=== PATIENT | male | born 1945 | race Caucasian/White ===

== ENCOUNTER 2022-10-08 09:22 | Inpatient (IN) ==
--- NOTE | 2022-10-08 09:46 | Emergency Department Note ---
Impression & Plan Peripheral arterial disease, Claudication ED Provider Note NAME: MARIA ALEJANDRA DONOVAN AGE: 76 SEX: M : 1945 ARRIVES VIA: Walk-In INFORMANT: Patient ED PROVIDER(S): [facility] Springer DO CHIEF COMPLAINT: B/L LE pain HPI: Patient is a 76-year-old male with past medical history of peripheral artery disease, intermittent claudication, and smoking who presents to the ER for bilateral leg pain. He notes this has been going on for about 6 months. Initially started in the left leg and now is in the right leg. Is worse in the right leg. Followed up with Dr. De and was consequently referred to Dr. Cha for evaluation. He came in today as the pain has been getting worse. It worsens with exertion. Improves with rest and then eventually resolves after sitting for several minutes. Denies any headache or change in vision. No chest pain or shortness of breath. No nausea, vomiting, or diarrhea. No dysuria, urgency, or frequency. He is still smoking. PAST MEDICAL HISTORY:See Below PAST SURGICAL HISTORY:See Below FAMILY HISTORY:See Below SOCIAL HISTORY:See Below HOME MEDICATIONS:See Below ALLERGIES:See Below VITALS:See Below PHYSICAL EXAMINATION: GENERAL: Sitting up in bed, alert, well appearing, well nourished, no distress, non-toxic EYE EXAM: normal conjunctiva. OROPHARYNX: no exudate, no erythema, lips, buccal mucosa, and tongue normal and mucous membranes are moist NECK: supple, no nuchal rigidity, no adenopathy, non-tender LUNGS: Clear to auscultation. Normal chest wall mechanics HEART: no murmurs, S1 normal and S2 normal ABDOMEN: abdomen soft, non-tender, normo-active bowel sounds, no masses, no rebound or guarding. UPPER EXTREMITIES: upper extremities are grossly normal. LOWER EXTREMITIES: Flexion-extension bilateral hips knees ankles and EHL intact. Unable to appreciate DP or PT bilaterally. Skin is warm with a delayed cap refill. NEURO EXAM: Normal sensorium, cranial nerves II-XII grossly intact, normal speech, no gross weakness of arms, no gross weakness of legs. MEDICAL DECISION MAKING: Patient is a 76-year-old male who presents ER referred in by Dr. Cha. IV was established blood work was obtained. External records reviewed. Labs show no significant leukocytosis or anemia. BMP along LFTs bilirubin was unremarkable. COVID was negative. CT angio shows multiple arterial occlusions which appear to be chronic with revascularization. Did discuss with Dr. Cha and he recommended admission and they will admit the patient. Patient declined pain medications. He was updated at bedside. Vascular recommended holding on heparin. Will be admitted to Dr. Cha service. Family and patient were updated bedside. Triage Nursing notes reviewed. Limited review of prior medical records performed Vital Signs: reviewed and remarkable for no significant abnormalities Differential diagnosis: DVT, musculoskeletal, infection, joint effusion, trauma, lymphedema, idiopathic, CHF, arterial occlusion, venous occlusion, ischemic limb, necrotizing fasciitis, as well as other pathologies. ER treatment provided: See below Diagnostics interpreted by me include EKG and cardiac monitoring as listed below: -Cardiac Monitoring: An order was placed for continuous cardiac monitoring. The monitor shows a rate of 85 with sinus rhythm. -ECG: none -Laboratory studies:Interpreted by me as stated above in MDM and shown below. Imaging studies: Xrays: As interpreted by me:none CTs show: CT angio as described above Consultation(s): As described in MDM discussed with vascular surgery Dr. Cha as described above Procedures:none Critical Care: None Past Med/Surg History Social History Smoking Status: Current every day smoker Preferred Language: Citizen Of [place] Feels Safe at Home: Yes Allergies Allergies Allergy/AdvReac Type Severity Reaction Status Date / Time gabapentin AdvReac Unknown Verified 09/05/22 14:59 Home Meds Home Medications Medication Instructions Recorded Confirmed acetaminophen 325 mg tablet 325 mg PO QID PRN Pain 09/03/22 10/08/22 (Tylenol) clopidogrel 75 mg tablet (Plavix) 75 mg PO DAILY 09/03/22 10/08/22 multivitamin 1 tab PO DAILY 09/03/22 10/08/22 tamsulosin 0.4 mg capsule (Flomax) 0.4 mg PO DAILY 09/03/22 10/08/22 atorvastatin 40 mg tablet 40 mg PO DAILY 10/08/22 10/08/22 finasteride 5 mg tablet 5 mg PO DAILY 10/08/22 10/08/22 Results & Data (ED) Vital Signs Vital Signs - 24 hr 10/08/22 09:26 10/08/22 10:18 10/08/22 10:08 Temperature 37.0 C Temperature Source Temporal Artery Scan Pulse Rate 83 72 67 Pulse Rate from SpO2 Sensor Pulse Rhythm Regular Respiratory Rate 18 21 Respiratory Effort / Characteristics Non-Labored Respiratory Depth Normal Respiratory Pattern Regular Blood Pressure 194/95 H Blood Pressure Mean 128 Blood Pressure Position Lying Pulse Oximetry 98 Oxygen Delivery Method Room Air Sepsis Recent Fever Within 48 Hours No Sepsis New/Unexplained Change in Mental Status No Sepsis Action Taken by Nursing No Action Required 10/08/22 10:11 10/08/22 10:30 10/08/22 10:31 Temperature Temperature Source Pulse Rate 85 72 Pulse Rate from SpO2 Sensor 89 73 Pulse Rhythm Respiratory Rate 23 20 Respiratory Effort / Characteristics Respiratory Depth Respiratory Pattern Blood Pressure 182/89 H Blood Pressure Mean 143 Blood Pressure Position Pulse Oximetry 95 95 Oxygen Delivery Method Sepsis Recent Fever Within 48 Hours Sepsis New/Unexplained Change in Mental Status Sepsis Action Taken by Nursing 10/08/22 10:31 10/08/22 11:00 10/08/22 11:01 Temperature Temperature Source Pulse Rate 70 72 Pulse Rate from SpO2 Sensor 72 74 Pulse Rhythm Respiratory Rate 35 H 16 Respiratory Effort / Characteristics Respiratory Depth Respiratory Pattern Blood Pressure 187/99 H Blood Pressure Mean 140 Blood Pressure Position Pulse Oximetry 97 96 Oxygen Delivery Method Sepsis Recent Fever Within 48 Hours Sepsis New/Unexplained Change in Mental Status Sepsis Action Taken by Nursing 10/08/22 11:01 10/08/22 11:32 Temperature Temperature Source Pulse Rate 71 80 Pulse Rate from SpO2 Sensor 70 Pulse Rhythm Respiratory Rate 19 20 Respiratory Effort / Characteristics Respiratory Depth Respiratory Pattern Blood Pressure Blood Pressure Mean Blood Pressure Position Pulse Oximetry 95 Oxygen Delivery Method Sepsis Recent Fever Within 48 Hours Sepsis New/Unexplained Change in Mental Status Sepsis Action Taken by Nursing Laboratory Data 10/08/22 10:02 10/08/22 10:02 Lab Results 10/08/22 10/08/22 10/08/22 Range/Units 10:02 10:02 10:02 WBC 10.05 (4.8-10.8) K/ul RBC 4.37 L (4.70-6.10) M/uL Hgb 14.5 (14.0-18.0) g/dl Hct 43.4 (42.0-52.0) % MCV 99.3 (80.0-100.0) fL MCH 33.2 (25.0-34.0) pg MCHC 33.4 (32.0-36.0) g/dL RDW Std Deviation 47.1 H (36.4-46.3) fL RDW Coeff of Wallace 13.0 (11.5-14.5) % Plt Count 293 (130-400) K/uL MPV 10.5 (9.4-12.4) fL Immature Gran % (Auto) 0.5 % Neut % (Auto) 71.5 % Lymph % (Auto) 17.3 % Rutherford % (Auto) 8.7 % Eos % (Auto) 1.5 % Baso % (Auto) 0.5 % Neut # (Auto) 7.19 H (1.40-6.50) K/uL Lymph # (Auto) 1.74 (1.2-3.4) K/uL Rutherford # (Auto) 0.87 H (0.11-0.59) K/uL Eos # (Auto) 0.15 (0-0.50) K/uL Baso # (Auto) 0.05 (0-0.2) K/uL Immature Gran # (Auto) 0.05 (0.01-0.20) K/uL Sodium 140 (136-145) mmol/L Potassium 4.2 (3.5-5.1) mmol/L Chloride 107 (98-107) mmol/L Carbon Dioxide 29 (21-32) mmol/L Anion Gap 4 (3-11) BUN 12 (6-23) mg/dl Creatinine 0.85 (0.6-1.4) mg/dl Est Cr Clr Drug Dosing 67.6 ml/min Est GFR ( Amer) 99.5 ml/min Est GFR (Non-Af Amer) 85.8 ml/min BUN/Creatinine Ratio 14.1 (10-20) Glucose 97 (70-99(Fasting)) mg/dl Calcium 9.5 (8.6-10.3) mg/dl Total Bilirubin 0.4 (0.2-1.0) mg/dl AST 17 (13-39) U/L ALT 12 (7-52) U/L Alkaline Phosphatase 38 (34-104) U/L Total Protein 7.3 (6.0-8.3) gm/dl Albumin 4.5 (3.4-5.0) gm/dl Globulin 2.8 (2.5-4.0) gm/dl Albumin/Globulin Ratio 1.6 (0.9-2) SARS-CoV-2, RNA, NAAT NEGATIVE (NEGATIVE) Administered Medications Enoxaparin Sodium (Enoxaparin Inj 30 Mg/0.3 Ml Syr) 30 mg SQ Q12H DEBO Stop: 11/07/22 11:29 Last Admin: 10/08/22 12:26 Dose: 30 mg Documented By: HS Discontinued Medications Ioversol (Optiray 320 500ml) 120 ml IV ONCE ONE Stop: 10/08/22 12:25 Last Admin: 10/08/22 12:14 Dose: 120 ml Documented By: [facility] Imaging Data Radiologist's Impression: Aorta w/Runoff CTA 10/08/22 09:54 CT ANGIOGRAPHY OF THE ABDOMEN AND PELVIS WITH BILATERAL LOWER EXTREMITY RUNOFF CLINICAL HISTORY: Bilateral leg pain with known occlusion. COMPARISON STUDY: Bilateral lower extremity arterial Doppler ultrasound August 15, 2022. TECHNIQUE: Helical axial images of the abdomen and pelvis with lower extremity runoff were obtained during arterial phase following intravenous injection 120 cc Optiray 320 IV. Sagittal and coronal reconstructions were viewed as well as maximal intensity projections on an independent 3-D workstation. Automated exposure control was utilized for the study. A dose lowering technique was utilized adhering to the principles of ALARA. FINDINGS: There is extensive aortoiliac atherosclerotic plaque as well as extensive plaque within the vessels of the lower extremities. Aneurysmal dilatation of the infrarenal abdominal aorta, measuring 3.5 x 3.4 cm is noted. Age-indeterminate aortoiliac occlusion is noted. There is reconstitution at the level of the distal right external iliac artery. Moderate stenoses within the right external iliac and common femoral arteries are noted. There are also moderate multifocal stenoses within the right superficial femoral artery. The right calf vessels are patent although difficult to assess given their small size. The right anterior tibial, posterior tibial, peroneal and dorsalis pedis vessels are patent. There is reconstitution at the level of the left common femoral artery. Reconstitution within the bilateral lower extremities is through enlarged inferior epigastric arteries as well as additional collaterals which are fed partially through prominent intercostal arteries. There is mild stenosis of the left common femoral artery. Severe multifocal stenoses within the mid to distal left superficial femoral artery are noted. The left trifurcation is patent. No flow is identified within the distal most aspects of the left calf vessels. This may be technical as the scanner out ran the bolus. Arterial phase images of the liver, spleen, adrenal glands and kidneys are unremarkable. The renal arteries are patent. The superior mesenteric artery and celiac axis are patent. There is no evidence for a bowel obstruction. The appendix is normal. There is no lymphadenopathy. There are no acute fractures. IMPRESSION: 1. Age indeterminate aortoiliac occlusion with distal reconstitution through enlarged inferior epigastric arteries and lateral abdominal wall collaterals, as detailed above. 2. Extensive plaque within the bilateral lower extremities, left greater than right. Severe multifocal stenoses within the mid to distal left superficial femoral artery. Left trifurcation patent however distal left calf vessels suboptimally assessed due to scanner likely outrunning the bolus. 3. Moderate stenoses within the right external iliac, common femoral and superficial femoral arteries. Patent right calf vessels. Three-vessel runoff on the right. 4. 3.5 cm infrarenal abdominal aortic aneurysm. 5. No bowel obstruction. No bowel wall thickening. ACT 112: Negative or not required by law. Electronically signed by: Amadou Galvin M.D. 10/08/2022 12:47 PM Discharge Plan Visit Data Chief Complaint: Swelling/Edema to Extremity Stated Complaint: SWELLING AT FEET, REDNESS PAIN ED Provider: Mt Springer Discharge Problem: Peripheral arterial disease, Claudication Forms Stand Alone Forms: My [facility] Digiting Prescriptions Prescriptions: No Action tamsulosin [Flomax] 0.4 mg capsule 0.4 mg PO DAILY clopidogrel [Plavix] 75 mg tablet 75 mg PO DAILY multivitamin Tablet 1 tab PO DAILY acetaminophen [Tylenol] 325 mg tablet 325 mg PO QID PRN (Reason: Pain) atorvastatin 40 mg tablet 40 mg PO DAILY finasteride 5 mg tablet 5 mg PO DAILY Referrals Referrals: Dusty Palumbo D.O. [Primary Care Provider] -
[2022-10-08 10:40] LABS: Basophils # (auto) 0.05 K/uL (0-0.2); Basophils % (auto) 0.5 %; Eosinophils # (auto) 0.15 K/uL (0-0.50); Eosinophils % (auto) 1.5 %; Hematocrit (blood only) 43.4 % (42.0-52.0); Hemoglobin 14.5 g/dl (14.0-18.0); Immature Granulocytes # (auto) 0.05 K/uL (0.01-0.20); Immature Granulocytes % (auto) 0.5 %; Lymphocytes # (auto) 1.74 K/uL (1.2-3.4); Lymphocytes % (auto) 17.3 %; Mean Corpuscular Hemoglobin 33.2 pg (25.0-34.0); Mean Corpuscular Hgb Conc 33.4 g/dL (32.0-36.0); Mean Corpuscular Volume 99.3 fL (80.0-100.0); Mean Platelet Volume 10.5 fL (9.4-12.4); Monocytes # (auto) 0.87 K/uL (0.11-0.59); Monocytes % (auto) 8.7 %; Neutrophils # (auto) 7.19 K/uL (1.40-6.50); Neutrophils % (auto) 71.5 %; Platelet Count 293 K/uL (130-400); RDW Standard Deviation 47.1 fL (36.4-46.3); Red Blood Count 4.37 M/uL (4.70-6.10); White Blood Count 10.05 K/ul (4.8-10.8)
[2022-10-08 10:55] LABS: Albumin Level 4.5 gm/dl (3.4-5.0); Bilirubin,Total 0.4 mg/dl (0.2-1.0); Calcium 9.5 mg/dl (8.6-10.3); Potassium 4.2 mmol/L (3.5-5.1)
[2022-10-08 11:01] LABS: Albumin Globulin Ratio 1.6 (0.9-2); BUN Creatinine Ratio 14.1 (10-20); Creatinine Clr Calc Pharmacy 67.6 ml/min; Est GFR (African American) 99.5 ml/min; Est GFR (Non-African American) 85.8 ml/min; Globulin 2.8 gm/dl (2.5-4.0); Total Protein 7.3 gm/dl (6.0-8.3)
[2022-10-08] MEDS ORDERED: oxyCODONE/ACETAMINOPHEN 5mg/325mg TAB PO PRN (11:37)
[2022-10-08] MEDS ORDERED: OPTIRAY 320 500ml IV ONE (12:24)
[2022-10-08] MEDS: ENOXAPARIN INJ 30 MG/0.3 ML SYR SQ SCH ×2 (12:26→22:28)
--- NOTE | 2022-10-08 12:49 | CT Scan Report ---
CT ANGIOGRAPHY OF THE ABDOMEN AND PELVIS WITH BILATERAL LOWER EXTREMITY RUNOFF CLINICAL HISTORY: Bilateral leg pain with known occlusion. COMPARISON STUDY: Bilateral lower extremity arterial Doppler ultrasound August 15, 2022. TECHNIQUE: Helical axial images of the abdomen and pelvis with lower extremity runoff were obtained d uring arterial phase following intravenous injection 120 cc Optiray 320 IV. Sagittal and coronal luis nstructions were viewed as well as maximal intensity projections on an independent 3-D workstation. A utomated exposure control was utilized for the study. A dose lowering technique was utilized adherin g to the principles of ALARA. FINDINGS: There is extensive aortoiliac atherosclerotic plaque as well as extensive plaque within the vessels of the lower extremities. Aneurysmal dilatation of the infrarenal abdominal aorta, measuring 3.5 x 3.4 cm is noted. Age-indeterminate aortoiliac occlusion is noted. There is reconstitution at t he level of the distal right external iliac artery. Moderate stenoses within the right external iliac and common femoral arteries are noted. There are also moderate multifocal stenoses within the right superficial femoral artery. The right calf vessels are patent although difficult to assess given thei r small size. The right anterior tibial, posterior tibial, peroneal and dorsalis pedis vessels are pa tent. There is reconstitution at the level of the left common femoral artery. Reconstitution within the jazmine ateral lower extremities is through enlarged inferior epigastric arteries as well as additional colla terals which are fed partially through prominent intercostal arteries. There is mild stenosis of the left common femoral artery. Severe multifocal stenoses within the mid to distal left superficial femo ral artery are noted. The left trifurcation is patent. No flow is identified within the distal most a spects of the left calf vessels. This may be technical as the scanner out ran the bolus. Arterial phase images of the liver, spleen, adrenal glands and kidneys are unremarkable. The renal ar teries are patent. The superior mesenteric artery and celiac axis are patent. There is no evidence fo r a bowel obstruction. The appendix is normal. There is no lymphadenopathy. There are no acute fractu res. IMPRESSION: 1. Age indeterminate aortoiliac occlusion with distal reconstitution through enlarged inferior epigas tric arteries and lateral abdominal wall collaterals, as detailed above. 2. Extensive plaque within the bilateral lower extremities, left greater than right. Severe multifoca l stenoses within the mid to distal left superficial femoral artery. Left trifurcation patent however distal left calf vessels suboptimally assessed due to scanner likely outrunning the bolus. 3. Moderate stenoses within the right external iliac, common femoral and superficial femoral arteries . Patent right calf vessels. Three-vessel runoff on the right. 4. 3.5 cm infrarenal abdominal aortic aneurysm. 5. No bowel obstruction. No bowel wall thickening. ACT 112: Negative or not required by law. Electronically signed by: Amadou Galvin M.D. 10/08/2022 12:47 PM
[2022-10-08] MEDS ORDERED: NICOTINE POLACRILEX 2 MG GUM MT PRN (13:52)
[2022-10-08] MEDS: NICOTINE 21 MG/24 HR TDSY TD SCH (13:57)
[2022-10-08] MEDS: ACETAMINOPHEN 325 MG TAB PO PRN ×2 (16:15→22:25)
[2022-10-08 19:02] LABS: Appearance Urine Clear (Clear); Bilirubin Urine Negative (Negative); Blood Urine Negative (Negative); Color Urine Yellow; Glucose Urine UA Negative (Negative); Ketones Urine Negative (Negative); Leukocyte Esterase Urine Negative (Negative); Nitrite Urine Negative (Negative); Protein Urine Negative (Negative); Specific Gravity Urine 1.031 (1.000-1.030); Urobilinogen Urine Negative (Negative); pH Urine 6.5 (4.5-7.5)
[2022-10-09] MEDS: ATORVASTATIN 40 MG TAB PO SCH (08:08)
[2022-10-09] MEDS: MULTIVITAMIN TAB PO SCH (08:08)
[2022-10-09] MEDS: TAMSULOSIN HCL 0.4 MG CAP PO SCH (08:08)
[2022-10-09] MEDS: FINASTERIDE 5 MG TAB PO SCH (08:08)
[2022-10-09] MEDS: NICOTINE 21 MG/24 HR TDSY TD SCH (09:07)
[2022-10-09 09:28] LABS: Basophils # (auto) 0.06 K/uL (0-0.2); Basophils % (auto) 0.6 %; Eosinophils # (auto) 0.25 K/uL (0-0.50); Eosinophils % (auto) 2.5 %; Hematocrit (blood only) 43.9 % (42.0-52.0); Immature Granulocytes # (auto) 0.05 K/uL (0.01-0.20); Immature Granulocytes % (auto) 0.5 %; Lymphocytes # (auto) 2.06 K/uL (1.2-3.4); Lymphocytes % (auto) 20.6 %; Mean Corpuscular Hemoglobin 33.1 pg (25.0-34.0); Mean Corpuscular Hgb Conc 34.2 g/dL (32.0-36.0); Mean Corpuscular Volume 96.9 fL (80.0-100.0); Mean Platelet Volume 10.6 fL (9.4-12.4); Monocytes # (auto) 0.77 K/uL (0.11-0.59); Monocytes % (auto) 7.7 %; Neutrophils # (auto) 6.83 K/uL (1.40-6.50); Neutrophils % (auto) 68.1 %; Platelet Count 311 K/uL (130-400); RDW Standard Deviation 46.6 fL (36.4-46.3); Red Blood Count 4.53 M/uL (4.70-6.10); White Blood Count 10.02 K/ul (4.8-10.8)
[2022-10-09 09:40] LABS: Partial Thromboplastin Time 27.3 Seconds (21.0-31.0); Prothrombin Time 10.9 Seconds (9.0-12.0)
[2022-10-09 09:50] LABS: Calcium 10.1 mg/dl (8.6-10.3); Potassium 4.4 mmol/L (3.5-5.1)
[2022-10-09 09:55] LABS: Creatinine Clr Calc Pharmacy 59.8 ml/min; Est GFR (African American) 94.6 ml/min; Est GFR (Non-African American) 81.6 ml/min
--- NOTE | 2022-10-09 11:32 | Surgery Progress Note ---
Date of Service October 09, 2022 Assessment & Plan (1) Chronic distal aortic occlusion: Plan: This point we went over the risk option benefits of aortobifemoral bypass. This was discussed with the patient and his daughter granddaughter and . All understood the risks options and benefits and elected to go ahead with this procedure. This to be scheduled for Friday. We will obtain a carotid Doppler due to history of carotid disease prior to surgery. Admission and Anticipated Discharge Date Admission Date: October 08, 2022 Subjective Patient continues to have discomfort in both lower extremities at rest. He denies any numbness in his feet at this time. Physical Exam Constitutional: WD/WN, vitals as above Respiratory: normal respiratory effort; no respiratory distress Cardiovascular: Rate/Rhythm: regular rate and regular rhythm Vessels: + posterior tibial pulses abnormal and + dorsalis pedis pulses abnormal Extremities: + abnormal capillary refill (Decreased in both feet.) Neurologic: normal sensation to monofilament and moves all extremities Results & Data Vital Signs (Past 12 Hours) Vital Signs Temp Pulse Resp BP Pulse Ox O2 Del Method 10/09/22 09:16 Room Air 10/09/22 07:57 36.8 C 68 16 163/79 H 95 Room Air
[2022-10-09] MEDS: ENOXAPARIN INJ 30 MG/0.3 ML SYR SQ SCH ×2 (11:33→22:08)
--- NOTE | 2022-10-09 11:56 | Ultrasound Report ---
BILATERAL CAROTID DOPPLER STUDY HISTORY: carotid stenosis COMPARISON: None. TECHNIQUE: Real-time, grayscale, and color Doppler sonography of the carotid arteries was performed. Imaging reviewed in the transverse and longitudinal planes. All measurements were calculated based on NASCET criteria. FINDINGS: Antegrade flow is seen in the bilateral vertebral arteries. Mild calcified plaque within the right carotid bifurcation. There is a left ICA stent which appears p atent. The peak systolic velocity within the right ICA is 63 cm/s. The right systolic ratio is 1.4. The peak systolic velocity within the left ICA is 92 cm/s. The left systolic ratio is 1.9. Elevated peak soft velocity within the left external carotid artery of 248 cm/s consistent with moder ate stenosis. IMPRESSION: 1. The left ICA stent appears patent. 2. No hemodynamically significant stenosis seen within the common or internal carotid arteries. 3. Moderate stenosis within the left external carotid artery. ACT 112: Negative or not required by law. Electronically signed by: Sharad Garland M.D. 10/09/2022 11:54 AM
[2022-10-09] MEDS: ACETAMINOPHEN 325 MG TAB PO PRN (13:44)
--- NOTE | 2022-10-09 14:07 | XCELERA ---
[id number]
[2022-10-10] MEDS: ACETAMINOPHEN 325 MG TAB PO PRN ×2 (06:07→22:33)
[2022-10-10] MEDS: ATORVASTATIN 40 MG TAB PO SCH (08:13)
[2022-10-10] MEDS: TAMSULOSIN HCL 0.4 MG CAP PO SCH (08:13)
[2022-10-10] MEDS: MULTIVITAMIN TAB PO SCH (08:13)
[2022-10-10] MEDS: FINASTERIDE 5 MG TAB PO SCH (08:13)
[2022-10-10] MEDS: NICOTINE 21 MG/24 HR TDSY TD SCH (08:14)
[2022-10-10] MEDS: ENOXAPARIN INJ 30 MG/0.3 ML SYR SQ SCH (11:16)
[2022-10-10] MEDS ORDERED: SODIUM CHLORIDE 0.9% 250 ML IV PRN (13:42)
--- NOTE | 2022-10-10 14:01 | Surgery Progress Note ---
Date of Service October 10, 2022 Assessment & Plan (1) Chronic distal aortic occlusion: Plan: Patient is scheduled for an aortobifemoral bypass tomorrow. I have discussed the risks options and benefits of the procedure with the patient. The patient understands the risks options and benefits and agrees to the procedure. Admission and Anticipated Discharge Date Admission Date: October 08, 2022 Subjective The patient has no new complaints. He still has discomfort in both feet. He is to have an aortobifemoral bypass tomorrow. Physical Exam Constitutional: WD/WN, vitals as above Respiratory: normal respiratory effort; no respiratory distress Cardiovascular: RRR, no murmur, no edema Vessels: + femoral pulses abnormal, + posterior tibial pulses abnormal and + dorsalis pedis pulses abnormal Extremities: normal capillary refill (Decreased capillary refill both feet) Gastrointestinal (Abdomen): Inspection/Auscultation: abdomen normal to inspection Musculoskeletal: Extremities: strength 5/5 throughout Neurologic: CN's II-XI intact bilaterally, normal sensation to monofilament and moves all extremities Psychiatric: Orientation: alert and oriented x 3 Results & Data Vital Signs (Past 12 Hours) Vital Signs Temp Pulse Resp BP Pulse Ox O2 Del Method 10/10/22 08:21 Room Air 10/10/22 07:31 36.3 C L 96 H 16 161/82 H 93 Room Air
[2022-10-11] MEDS ORDERED: ceFAZolin 2000MG 2,000 MG/15 ML SYR IV SCH (06:00)
--- NOTE | 2022-10-11 07:52 | History & Physical Bridge Note ---
Date of Service October 11, 2022 History & Physical Bridge Note Patient for aortobifemoral bypass today. I have discussed the risks options and benefits of the procedure with the patient. The patient understands the risks options and benefits and agrees to the procedure. I have examined the patient, reviewed the History & Physical and in the interval since the performance of the History & Physical I have noted the following changes of clinical significance: no changes noted
[2022-10-11] MEDS ORDERED: LACTATED RINGER'S 1,000 ML IV SCH (08:00)
--- NOTE | 2022-10-11 10:09 | Anesthesiology Consultation ---
Date of Service October 11, 2022 Assessment & Plan Chart Review Chart Review: Acceptable Risk for Surgery and Patient NOT seen in Pre Admission Testing Consults Requested none ASA ASA4 Proposed Anesthesia Anesthesia Type: General Anesthesia Line Insertion: Arterial line Risk / Benefits Reviewed With: PT / POA / Parent / Guardian, Accepts Plan and Informed Consent Obtained History Surgery Operation Date: 10/11/22 10:20 Proposed Procedures p Aortobifemoral Bypass - Joaquim Cha MD Height/Weight Height: 5 ft 9 in Weight: 60 kg Allergies Allergy/AdvReac Type Severity Reaction Status Date / Time gabapentin AdvReac Unknown Verified 09/05/22 14:59 Medications Home Medications Medication Instructions Recorded Confirmed Last Taken acetaminophen 325 mg tablet 325 mg PO QID PRN Pain 09/03/22 10/08/22 10/08/22 (Tylenol) clopidogrel 75 mg tablet (Plavix) 75 mg PO DAILY 09/03/22 10/08/22 10/07/22 multivitamin 1 tab PO DAILY 09/03/22 10/08/22 10/07/22 tamsulosin 0.4 mg capsule (Flomax) 0.4 mg PO DAILY 09/03/22 10/08/22 10/07/22 atorvastatin 40 mg tablet 40 mg PO DAILY 10/08/22 10/08/22 10/07/22 finasteride 5 mg tablet 5 mg PO DAILY 10/08/22 10/08/22 10/07/22 Active Medications Generic Name Dose Route Start Last Admin Trade Name Freq PRN Reason Stop Dose Admin Acetaminophen 325 mg 10/08/22 15:48 10/10/22 22:33 Acetaminophen 325 Mg Tab PO 11/07/22 15:47 325 mg QID PRN Administration Pain Atorvastatin Calcium 40 mg 10/09/22 09:00 10/10/22 08:13 Atorvastatin 40 Mg Tab PO 11/08/22 08:59 40 mg DAILY DEBO Administration Finasteride 5 mg 10/09/22 09:00 10/10/22 08:13 Finasteride 5 Mg Tab PO 11/08/22 08:59 5 mg DAILY DEBO Administration Lactated Ringer's 1,000 mls @ 80 mls/hr 10/11/22 08:00 10/11/22 09:56 Lr IV 10/11/22 20:29 80 mls/hr .[id number] DEBO Administration Miscellaneous 1 each 10/09/22 08:59 10/11/22 08:49 Remove Nicoderm Patch N/A 11/08/22 08:58 1 each DAILY@0859 DEBO Administration Multivitamins 1 tab 10/09/22 09:00 10/10/22 08:13 Multivitamin Tab PO 11/08/22 08:59 1 tab DAILY DEBO Administration Nicotine 21 mg 10/08/22 14:00 10/10/22 08:14 Nicotine 21 Mg/24 Hr Tdsy TD 11/07/22 13:59 21 mg QAM DEBO Administration Tamsulosin HCl 0.4 mg 10/09/22 09:00 10/10/22 08:13 Tamsulosin Hcl 0.4 Mg Cap PO 11/08/22 08:59 0.4 mg DAILY DEBO Administration NPO Date Last Intake of Fluids: 10/10/22 Time Last Intake of Fluids: 21:00 Date Last Intake of Solids: 10/10/22 Time Last Intake of Solids: 18:00 Past Medical History ASCVD;PVD;HTN;HLD;COPD/Emphysema;+ cigarette smoker;infrarenal AAA Exercise / Class Metabolic Activity III < 4 Walking/Shop/Light housework Past Anesthesia History No Hx of Anesthesia Complications and No Family Hx of Anesthesia Complications History of PONV No Hx of PONV and No Hx of Motion Sickness Social History Smoking Status: Current every day smoker tobacco type: cigarettes Do You Dip or Chew Tobacco: No Hx Alcohol Use: No Hx Substance Use: No Physical Exam Vital Signs Last Vital Signs Temp 36.8 C 10/11/22 09:49 Pulse 74 10/11/22 09:49 Resp 18 10/11/22 09:49 BP 148/80 H 10/11/22 09:49 Pulse Ox 94 10/11/22 09:49 O2 Del Method Room Air 10/11/22 09:49 Constitutional + cachectic; no acute distress ENMT Mouth: + dentition abnormality and + edentulous Thyromental Distance: > or= 3.5 Finger Breadths Mallampati Class: II Neck normal visual inspection and trachea midline; neck extension not limited Respiratory + uses accessory muscles Auscultation: + diminished lung sounds Cardiovascular Rate/Rhythm: regular rate and regular rhythm Heart Sounds: no murmur Vessels: no carotid bruit Musculoskeletal Spine: normal cervical ROM and no pain with cervical ROM Extremities: full ROM of extremities Neurologic moves all extremities Motor/Sensory: no sensory deficit Psychiatric Orientation: alert and oriented x 3 Testing Laboratory Results 10/09/22 08:53 10/09/22 08:53 PT 10.9 Seconds (9.0-12.0) 10/09/22 08:53 INR 1.0 (0.9-1.1) 10/09/22 08:53 APTT 27.3 Seconds (21.0-31.0) 10/09/22 08:53 Urine Color Yellow 10/08/22 18:02 Urine Appearance Clear (Clear) 10/08/22 18:02 Urine pH 6.5 (4.5-7.5) 10/08/22 18:02 Ur Specific [place] 1.031 (1.000-1.030) H 10/08/22 18:02 Urine Protein Negative (Negative) 10/08/22 18:02 Urine Glucose (UA) Negative (Negative) 10/08/22 18:02 Urine Ketones Negative (Negative) 10/08/22 18:02 Urine Nitrite Negative (Negative) 10/08/22 18:02 Ur Leukocyte Esterase Negative (Negative) 10/08/22 18:02 Blood Type A Positive 10/10/22 13:55 Antibody Screen NEGATIVE 10/10/22 13:55 Electrocardiogram Date: 09/05/22 Findings: + NSR @ (@ 72 w/PAC's) Echocardiogram Date: 10/09/22 EF: 45% LV Function: mild decre RWMA: + hypokinetic (mild global HK) Valvular Disease: + MR (mild) RV - Normal
[2022-10-11] MEDS ORDERED: HEPARIN (PORCINE) 1000 UNIT/ML 10 ML (CATH LAB USE ONLY) ONE ×2 (10:19→10:45)
[2022-10-11] MEDS ORDERED: ePHEDrine sulfate 50 MG/ML AMP ONE (10:27)
[2022-10-11] MEDS ORDERED: PHENYLEPHRINE HCL 10 MG/ML VIAL ONE (10:27)
[2022-10-11] MEDS ORDERED: LIDOCAINE 2% 2 ML VIAL/AMP(20MG/ML) INFIL ONE (10:27)
[2022-10-11] MEDS ORDERED: fentaNYL citrate PF 100 MCG/2 ML VIAL ONE ×4 (10:27→15:18)
[2022-10-11] MEDS ORDERED: PROPOFOL IV EMULSION 10 MG/ML 20 ML VIAL IV ONE (10:27)
[2022-10-11] MEDS ORDERED: ROCURONIUM BROMIDE 10 MG/ML 5 ML VIAL IV ONE (10:27)
[2022-10-11] MEDS ORDERED: ACETAMINOPHEN 1000 MG/100 ML IV IV ONE (10:30)
[2022-10-11] MEDS ORDERED: THROMBIN FOR SOLN 20000 UNIT KIT ONE (10:45)
[2022-10-11] MEDS ORDERED: GELATIN SPONGE SZ 100 ONE (10:45)
[2022-10-11] MEDS ORDERED: DEXAMETHASONE SOD INJ 4 MG/ML VIAL ONE (12:30)
[2022-10-11] MEDS ORDERED: MANNITOL 25% 12.5 GM/50 ML VIAL IV ONE (12:30)
[2022-10-11] MEDS ORDERED: ONDANSETRON INJ 2 MG/ML 2 ML VIAL ONE (12:30)
[2022-10-11] MEDS ORDERED: LABETALOL HCL IV 5 MG/ML 20ML IV ONE (12:30)
[2022-10-11] MEDS ORDERED: HEPARIN SOD (PORCINE) 1000 UNIT/ML ONE ×13 (12:30→12:58)
[2022-10-11] MEDS: ceFAZolin 330 MG/ML 1 GM VIAL ONE ×2 (12:35→14:38)
[2022-10-11] MEDS ORDERED: LARYING-O-JET KIT (LTA) ONE (12:35)
[2022-10-11] MEDS ORDERED: SURGICEL ABSORB HEMOSTAT 2IN X 14IN TOP ONE (12:49)
[2022-10-11] MEDS ORDERED: PROTAMINE SULFATE 10 MG/ML 5 ML VIAL IV ONE (13:59)
--- NOTE | 2022-10-11 14:45 | Operative Report ---
Post Operative Report Pre & Post Diagnosis Operation Date: 10/11/22 10:20 Pre-Op Diagnosis: (1) Chronic distal aortic occlusion Post-Op Diagnosis: (1) Chronic distal aortic occlusion I identified the patient and participated in the time-out.: Yes Procedure Operation Date: 10/11/22 10:20 Actual Procedures p Aortobifemoral Bypass(Not Applicable) - Joaquim Cha MD Surgeon Joaquim Cha MD Educational Speech Language Clinician Janeth,PAC Estimated Blood Loss 400 Findings Consistent with Post-Op Diagnosis Specimens none Anesthesia Type General Complications none Disposition Accompanied Patient To Recovery: No Disposition: Recovery Room Indications This is a 76 gentleman who was found to have infrarenal aortic occlusion and a small abdominal aortic aneurysm. He has severe claudication with rest pain in both lower extremities. Aortobifemoral bypass is recommended. I have discussed the risks options and benefits of the procedure with the patient. The patient understands the risks options and benefits and agrees to the procedure. Description of Procedure Patient was taken the operating placed supine position. After general anesthesia was accomplished the abdomen and groins were prepped and draped in a sterile manner. Patient was identified and timeout was performed. A longitudinal midline incision was made from the xiphoid down to below the umbilicus. This carried down through the midline fascia and in the abdominal cavity entered. No gross pathology was noted on exploration. The small bowel was retracted to the right and the self-retaining retractors placed. Retroperitoneum was opened exposing the small abdominal aortic aneurysm. The aorta was exposed from the bifurcation up to the renal arteries. Renal artery origins were exposed. The renal vein was isolated and slung with a vessel loop. On CT angio he had a thrombus present in the proximal aorta up to the renal arteries. Patient was heparinized at that time. Once adequate heparinization was accomplished a cross-clamp was placed on the aorta above the renals. The aorta was transected approximately 2 fingerbreadths below the renal arteries and the thrombotic plug and plaque removed. Excellent flow was seen. The clamp was then replaced below the renal arteries. A 20 x 10 propatent bifurcated aortic graft was brought to the operative field. The shaft was cut the appropriate length and end-to-side anastomosis was accomplished between the graft and the aorta after the aorta was transected. This was done in an end-to-end fashion. We used pledgets to reinforce the posterior wall of the aortic anastomosis. Once this was completed good flow was seen through the graft. Added hemostasis was seen of the suture line. We then exposed the femoral arteries on both sides in the groins with longitudinal incisions. Once this was done the graft limbs were passed to the appropriate groins and tunneling fashion. The left common and profunda superficial femoral arteries were then clamped. Longitudinal arteriotomy was then made. There was significant mount of plaque seen at the common femoral artery and this was endarterectomized. Once this was completed and the site anastomosis was accomplished using a running 5-0 Prolene suture in usual vascular fashion. Prior to completing the closure backbleeding and forward bleeding was allowed to occur. Final few sutures were then placed and securely tied. Clamps were removed from the femoral arteries and the left limb of the graft. Good flow was seen. After hemostasis was noted good Doppler signals were heard in the profunda and superficial femoral artery. The right groin was then addressed. The right common femoral artery profunda and superficial femoral arteries were clamped. Longitudinal arteriotomy was then made. Again there was a fair amount of plaque noted. A endarterectomy was then accomplished of the common femoral artery. At that point the right limb of the graft was then trimmed and beveled appropriate length and an end to side anastomosis accomplished again using a 5-0 Prolene suture in usual vascular fashion. Prior to completing the closure backbleeding forward bleeding was allowed to occur. Final few sutures were placed and securely tied. Once this was done clamps were removed. Excellent flow was seen through the graft good Doppler signals were heard distally in the groin. The heparin which had been given preclamping was reversed with protamine. Once adequate hemostasis was seen of all the anastomoses and wounds the retroperitoneum was closed over the graft completely covering the graft using a running 3-0 Vicryl suture. The abdomen was then irrigated with antibiotic solution. The abdominal fascia was then approximated with double-stranded PDS suture. Groin incision was then irrigated and both groins were closed with a running 2-0 Vicryl suture for the femoral sheath and a 3-0 Vicryl subcutaneous layer and kaycee for the skin. The abdominal wound was also closed with kaycee. Sterile dressings were applied to the abdominal wound. Prevena dressings were applied to the groins.The patient left the operation room in satisfactory condition and tolerated the procedure well. All needle and sponge counts were correct at the end of the procedure. Faustina Massey Pac assisted due to lack of resident availability and was necessary for positioning, draping, retraction, wound closure deep layers, subcutaneous tissue, and skin closure and was necessary for assisting with the case. I attest to the content of the Intraoperative Record and any orders documented therein. Any exceptions are noted below.
--- NOTE | 2022-10-11 14:52 | History & Physical Report ---
Date of Service October 11, 2022 Assessment & Plan (1) Aorto-iliac disease: Plan: This patient is admitted for aortoiliac occlusive disease with infrarenal aortic occlusion and rest pain. We will obtain an echocardiogram to evaluate his cardiac status prior to surgical intervention. We recommended aortobifemoral bypass. He also undergone carotid imaging being that he does have a carotid stent which has not been evaluated in a number of years. Admission and Anticipated Discharge Date Admission Date: October 08, 2022 History of Present Illness Chief Complaint: Infrarenal aortic occlusion Primary Care Provider: Dusty Palumbo This 76-year-old gentleman was seen in the office for bilateral iliac occlusions on ultrasound. He had a duplex which showed bilateral iliac artery occlusions. He was to have a CT angio as an outpatient followed by revascularization. Most likely the plan was to do an aortobifemoral bypass however his rest pain developed in both lower extremities. He was seen in the ED for increased pain and admitted at that time. CT angio done at that time showed an infrarenal aortic occlusion and bilateral iliac artery occlusions. He was admitted for pain control and preop for aortobifemoral bypass for limb salvage. Allergies Allergy/AdvReac Type Severity Reaction Status Date / Time gabapentin AdvReac Unknown Verified 09/05/22 14:59 Home Medications Medication Instructions Recorded Confirmed Type acetaminophen 325 mg tablet 325 mg PO QID PRN Pain 09/03/22 10/08/22 History (Tylenol) clopidogrel 75 mg tablet (Plavix) 75 mg PO DAILY 09/03/22 10/08/22 History multivitamin 1 tab PO DAILY 09/03/22 10/08/22 History tamsulosin 0.4 mg capsule (Flomax) 0.4 mg PO DAILY 09/03/22 10/08/22 History atorvastatin 40 mg tablet 40 mg PO DAILY 10/08/22 10/08/22 History finasteride 5 mg tablet 5 mg PO DAILY 10/08/22 10/08/22 History Past Med/Surg History Social History Smoking Status: Current every day smoker Second Hand Exposure: Yes; Do You Dip or Chew Tobacco: No; Tobacco Cessation Education Requested by Patient: No Hx Alcohol Use: No Hx Substance Use: No Preferred Language: Yakut Communication Ability: Effective Blood Bank Business Manager Required: No Beliefs That Will Affect Care: None Current Living Situation: Spouse Other Information That Helps Us Care for You: No Feels Safe at Home: Yes Safety Concerns: Feels Safe At This Time Assistive Devices: Walker Review of Systems All systems reviewed & are unremarkable except as noted in HPI & below Physical Exam Constitutional: WD/WN, vitals as above Respiratory: normal respiratory effort, lungs clear to auscultation Cardiovascular: RRR, no murmur, no edema Vessels: radial pulses present; no carotid bruit, + femoral pulses abnormal, + posterior tibial pulses abnormal and + dorsalis pedis pulses abnormal Extremities: normal capillary refill (Decreased) Gastrointestinal (Abdomen): normal bowel sounds, soft, nontender, no hepatosplenomegaly Musculoskeletal: no cyanosis or clubbing, extremities motor strength 5/5 Neurologic: CN's II-XI intact bilaterally, normal sensation to monofilament (Slight decrease sensation in both feet) and moves all extremities Psychiatric: Orientation: alert and oriented x 3 Results & Data Vital Signs (Past 12 Hours) Vital Signs Temp Pulse Resp BP Pulse Ox O2 Del Method 10/11/22 09:49 36.8 C 74 18 148/80 H 94 Room Air 10/11/22 07:45 Room Air 10/11/22 07:57 36.6 C 77 18 141/64 H 93 Room Air Code Status & VTE Plan VTE Prophylaxis Plan VTE Prophylaxis will be ordered: Yes
--- NOTE | 2022-10-11 15:11 | XRay Report ---
XR KUB/Abdomen 1 view, XR pelvis 1-2V routine CLINICAL HISTORY: INCORRECT COUNT OR#12 TECHNIQUE: 1 view of the abdomen and one view of the pelvis were obtained. Comparison: Comparison is made to CTA abdomen 10/08/2022 FINDINGS: Expected postsurgical appearance with midline and bilateral inguinal surgical kaycee. No retained mandujano rgical implements are seen. A few drains are noted. IMPRESSION: No abnormal retained surgical instruments. ACT 112: Negative or not required by law. Electronically signed by: Joel Morrison M.D. 10/11/2022 3:09 PM
[2022-10-11] MEDS ORDERED: ePHEDrine sulfate 50 MG/ML AMP IV PRN (15:16)
[2022-10-11] MEDS ORDERED: NALOXONE HCL 0.4 MG/1 ML VIAL/CARP IV PRN (15:16)
[2022-10-11] MEDS ORDERED: ONDANSETRON INJ 2 MG/ML 2 ML VIAL IV PRN (15:16)
[2022-10-11] MEDS ORDERED: PROMETHAZINE HCL 12.5 MG in SODIUM CHLORIDE 0.9% 50 ML IV PRN (15:16)
[2022-10-11] MEDS ORDERED: FLUMAZENIL 0.1 MG/1 ML 10 ML VIAL IV PRN (15:16)
[2022-10-11] MEDS ORDERED: LABETALOL HCL IV 5 MG/ML 20ML IV PRN (15:16)
[2022-10-11] MEDS ORDERED: ATROPINE SULFATE 0.1 MG/ML 10ML SYR IV PRN (15:16)
[2022-10-11] MEDS: fentaNYL citrate PF 100 MCG/2 ML VIAL IV PRN ×3 (15:25→15:35)
[2022-10-11] MEDS: HYDROmorphone INJ 1 MG/ML SYRINGE IV PRN ×8 (15:40→16:20)
[2022-10-11 15:49] LABS: Hematocrit (blood only) 37.9 % (42.0-52.0); Hemoglobin 12.6 g/dl (14.0-18.0); Mean Corpuscular Hemoglobin 33.2 pg (25.0-34.0); Mean Corpuscular Hgb Conc 33.2 g/dL (32.0-36.0); Mean Corpuscular Volume 99.7 fL (80.0-100.0); Mean Platelet Volume 10.5 fL (9.4-12.4); Platelet Count 291 K/uL (130-400); RDW Coefficient of Variation 12.9 % (11.5-14.5); RDW Standard Deviation 46.8 fL (36.4-46.3)
[2022-10-11 16:01] LABS: BUN Creatinine Ratio 12.5 (10-20); Calcium 8.2 mg/dl (8.6-10.3); Creatinine Clr Calc Pharmacy 45.8 ml/min; Est GFR (African American) 68.6 ml/min; Est GFR (Non-African American) 59.2 ml/min; Magnesium 1.6 mg/dl (1.7-2.4); Potassium 4.6 mmol/L (3.5-5.1)
[2022-10-11 16:06] LABS: Basophils # (auto) 0.09 K/uL (0-0.2); Basophils % (auto) 0.3 %; Echinocytes 1+; Eosinophils # (auto) 0.12 K/uL (0-0.50); Eosinophils % (auto) 0.4 %; Immature Granulocytes # (auto) 0.24 K/uL (0.01-0.20); Immature Granulocytes % (auto) 0.8 %; Lymphocytes # (auto) 1.28 K/uL (1.2-3.4); Monocytes # (auto) 1.96 K/uL (0.11-0.59); Monocytes % (auto) 6.2 %; Neutrophils # (auto) 28.11 K/uL (1.40-6.50); Neutrophils % (auto) 88.3 %
[2022-10-11 16:17] LABS: INR 1.1 (0.9-1.1); Partial Thromboplastin Ratio 1.1; Partial Thromboplastin Time 30.2 Seconds (21.0-31.0); Prothrombin Time 11.9 Seconds (9.0-12.0)
--- NOTE | 2022-10-11 16:22 | Anesthesiology Progress Note ---
Date of Service October 11, 2022 Anesthesia Post Procedure Vital Signs Vital Signs: Temp Pulse Pulse Resp BP BP Pulse Ox 10/11/22 16:15 86 15 123/61 93 10/11/22 16:05 83 12 124/67 96 10/11/22 15:55 81 14 131/68 95 10/11/22 15:45 87 19 129/70 94 10/11/22 15:35 85 23 146/81 H 96 10/11/22 15:25 83 22 152/81 H 98 10/11/22 15:17 36.7 C 89 27 H 141/81 H 98 10/11/22 09:49 36.8 C 74 18 148/80 H 94 10/11/22 07:45 10/11/22 07:57 36.6 C 77 18 141/64 H 93 10/10/22 21:29 36.7 C 73 20 121/77 95 O2 Del Method O2 Flow Rate 10/11/22 16:15 Oxymask 3 10/11/22 16:05 Oxymask 3 10/11/22 15:55 Oxymask 3 10/11/22 15:45 Oxymask 3 10/11/22 15:35 Oxymask 3 10/11/22 15:25 Oxymask 6 10/11/22 15:17 Oxymask 6 10/11/22 09:49 Room Air 10/11/22 07:45 Room Air 10/11/22 07:57 Room Air 10/10/22 21:29 Room Air Pain Intensity Bilateral Ankle: Pain Intensity: 1 Abdomen: Pain Intensity: 8 Transfer of Care Handoff Completed per policy Notes Mental Status: alert / awake / arousable Patient Amnestic to Procedure: Yes Nausea / Vomiting: adequately controlled Pain: adequately controlled Airway Patency, RR, SpO2: stable & adequate BP & HR: stable & adequate Hydration State: stable & adequate Anesthetic Complications: no major complications apparent
[2022-10-11] MEDS: NICOTINE 21 MG/24 HR TDSY TD SCH (17:33)
[2022-10-11] MEDS: ATORVASTATIN 40 MG TAB PO SCH (17:34)
--- NOTE | 2022-10-11 17:35 | Critical Care Consultation ---
Date of Consultation October 11, 2022 Assessment & Plan (1) Aorto-iliac disease: (2) Chronic distal aortic occlusion: (3) BPH (benign prostatic hyperplasia): (4) COPD with emphysema: (5) Normal anion gap metabolic acidosis: (6) Leukocytosis: Plan -- Peripheral vascular disease based chronic distal aortic occlusion S/p aortobifemoral bypass by Dr. Cha on 10/11/2022 Monitor H&H Monitor lower extremity pulses Monitor for any weakness in the lower extremities --Dyslipidemia Continue with statin -- Normal anion gap metabolic acidosis Follow-up lactic acid Follow-up urine lites -- COPD with active smoker > [id number] smoking history Not on any inhalers at home We will start on Incruse tomorrow -- Leukocytosis Likely from the dexamethasone that he got today Hold off on antibiotics for the time being --Prophylaxis VTE: IPC GI: Protonix Lines: Peripheral, left radial Diet: N.p.o. Plan: Strict in and out Resume Plavix tomorrow Monitor H&H Follow-up chest x-ray Continue with pain medication Follow-up lactic acid, UA for ketones Magnesium being replaced Please note the above document was generated using voice recognition software. It may contain grammatical, syntax or spelling errors.Any formal questions or concerns about the content, text or information contained within the body of this dictation should be directly addressed to the provider for clarification. History of Present Illness Attending Physician: Joaquim Cha MD History of Present Illness 76-year-old male presented to the hospital to have aorta of bifemoral bypass Past medical history: BPH, peripheral vascular disease, COPD Patient was transferred to the ICU for postop care At the time of examination patient saturation was 88-89% on room air. He had just gotten Dilaudid in the PACU prior to coming to the ICU so he was somnolent His map was in high 60s with heart rate in the high 80s. He was not in any distress On waking up he denied any chest pain, no shortness of breath. He did complain of pain at the incision site. He denies any nausea or vomiting No headache, no blurry vision No fever or chills Social history: Greater than [id number] smoking history currently smoking 1 and half pack a day Allergies Allergy/AdvReac Type Severity Reaction Status Date / Time gabapentin AdvReac Unknown Verified 09/05/22 14:59 Home Medications Medication Instructions Recorded Confirmed Type acetaminophen 325 mg tablet 325 mg PO QID PRN Pain 09/03/22 10/08/22 History (Tylenol) clopidogrel 75 mg tablet (Plavix) 75 mg PO DAILY 09/03/22 10/08/22 History multivitamin 1 tab PO DAILY 09/03/22 10/08/22 History tamsulosin 0.4 mg capsule (Flomax) 0.4 mg PO DAILY 09/03/22 10/08/22 History atorvastatin 40 mg tablet 40 mg PO DAILY 10/08/22 10/08/22 History finasteride 5 mg tablet 5 mg PO DAILY 10/08/22 10/08/22 History Patient History Social History Smoking Status: Current every day smoker Second Hand Exposure: Yes; Do You Dip or Chew Tobacco: No; Tobacco Cessation Education Requested by Patient: No Hx Alcohol Use: No Hx Substance Use: No Preferred Language: Yi Communication Ability: Effective Foamite Mixer Required: No Beliefs That Will Affect Care: None Current Living Situation: Spouse Other Information That Helps Us Care for You: No Feels Safe at Home: Yes Safety Concerns: Feels Safe At This Time Assistive Devices: Walker Review of Systems Review of Systems: All systems reviewed & are unremarkable except as noted in HPI & below Physical Exam Physical Exam: Constitutional: No acute distress HEENT: EOMI, PERRLA Respiratory system: Decreased air entry bilaterally, no wheeze, no rhonchi, no crackles CVS: S1-S2 positive, no murmurs or gallops Abdomen: Soft, nontender, nondistended, positive bowel sounds x4 Extremities: +2 pulses bilaterally radialis/+1 bilateral dorsalis pedis, no cyanosis, no edema, warm lower extremities Neuro: Somnolent, patient is got Dilaudid, awake alert oriented to self Psych: Flat mood and affect G/U: Positive [place] Skin: no rashes, warm and dry Lymphatic: no cervical or axillary lymphadenopathy Results & Data Results & Data Vital Signs (Past 12 Hours) Vital Signs Temp Pulse Pulse Pulse Resp BP BP 10/11/22 17:31 36.6 C 10/11/22 17:15 86 12 10/11/22 17:04 90 13 10/11/22 17:04 90 101/70 10/11/22 16:45 88 12 121/77 10/11/22 17:12 10/11/22 16:35 92 H 15 106/59 L 10/11/22 16:25 36.3 C L 82 14 135/72 10/11/22 16:15 86 15 123/61 10/11/22 16:05 83 12 124/67 10/11/22 15:55 81 14 131/68 10/11/22 15:45 87 19 129/70 10/11/22 15:35 85 23 146/81 H 10/11/22 15:25 83 22 152/81 H 10/11/22 15:17 36.7 C 89 27 H 141/81 H 10/11/22 09:49 36.8 C 74 18 10/11/22 07:45 10/11/22 07:57 36.6 C 77 18 BP Pulse Ox O2 Del Method O2 Flow Rate 10/11/22 17:31 10/11/22 17:15 95 10/11/22 17:04 10/11/22 17:04 10/11/22 16:45 92 Oxymask 4 10/11/22 17:12 Oxymask 3 10/11/22 16:35 93 Oxymask 3 10/11/22 16:25 93 Oxymask 3 10/11/22 16:15 93 Oxymask 3 10/11/22 16:05 96 Oxymask 3 10/11/22 15:55 95 Oxymask 3 10/11/22 15:45 94 Oxymask 3 10/11/22 15:35 96 Oxymask 3 10/11/22 15:25 98 Oxymask 6 10/11/22 15:17 98 Oxymask 6 10/11/22 09:49 148/80 H 94 Room Air 10/11/22 07:45 Room Air 10/11/22 07:57 141/64 H 93 Room Air Laboratory Results 10/11/22 15:26 10/11/22 15:26 Coding Level of Care Code 88650 IN/OBS CONSULT LVL 4,60M Diagnoses Aorto-iliac disease I77.9 Chronic distal aortic occlusion I74.09 BPH (benign prostatic hyperplasia) N40.0 COPD with emphysema J43.9 Normal anion gap metabolic acidosis E87.20 Leukocytosis D72.829
[2022-10-11] MEDS: FINASTERIDE 5 MG TAB PO SCH (17:36)
[2022-10-11] MEDS: TAMSULOSIN HCL 0.4 MG CAP PO SCH (17:36)
[2022-10-11] MEDS: MULTIVITAMIN TAB PO SCH (17:36)
[2022-10-11] MEDS: D5W AND 1/2NSS 1,000 ML IV SCH (17:41)
--- NOTE | 2022-10-11 18:14 | XRay Report ---
SINGLE VIEW CHEST CLINICAL HISTORY: Peripheral vascular disease. Recent vascular surgery. FINDINGS: 2 AP, portable, supine chest radiographs are obtained. No prior studies are available for c omparison at the time of dictation. An enteric tube is in place. The tip projects below the diaphragm over the stomach. The heart is mildly enlarged noting atherosclerotic calcification of the thoracic aorta. The pulmonary vasculature is not congested. Emphysema is suspected. There is bibasilar scarrin g/atelectasis. No airspace consolidation or large pleural effusion is identified. No pneumothorax is seen. The skeletal structures are osteopenic. The bony thorax is grossly intact. Midline skin clips a re seen in the upper abdomen. Question intraperitoneal free air below the right hemidiaphragm. IMPRESSION: 1. Cardiomegaly and suspect emphysema. 2. No acute cardiopulmonary abnormality is seen. 3. An enteric tube is in place as above. 4. Question intraperitoneal free air below the right hemidiaphragm. This may related to recent surger y. Correlate clinically. ACT 112: Negative or not required by law. Electronically signed by: Winston Espinal M.D. 10/11/2022 6:11 PM
[2022-10-11] MEDS: MAGNESIUM SULFATE / D5W 1 GM/100 ML BAG IV SCH ×3 (18:21→23:05)
[2022-10-11] MEDS ORDERED: PLASMA-LYTE A 500 ML IV ONE (19:16)
[2022-10-11] MEDS: MoRPHine SULFATE 4 MG/ML 1 ML CARP\\VIAL IV PRN ×2 (19:56→23:06)
[2022-10-11] MEDS: ceFAZolin 2000MG 2,000 MG/15 ML SYR IV SCH (19:58)
[2022-10-11 23:31] LABS: Appearance Urine Cloudy (Clear); Bacteria Urine Automated Negative (Negative); Bilirubin Urine Negative (Negative); Blood Urine 3+ (Negative); Color Urine Yellow; Epithelial Cell Urine Auto >30 /lpf (0-5); Glucose Urine UA Negative (Negative); Ketones Urine Negative (Negative); Leukocyte Esterase Urine Negative (Negative); Nitrite Urine Negative (Negative); Protein Urine 2+ (Negative); Specific Gravity Urine 1.027 (1.000-1.030); Urobilinogen Urine Negative (Negative)
[2022-10-11 23:39] LABS: Potassium Random Urine 55.6 mmol/L
[2022-10-11 23:47] LABS: Creatinine Urine Random 91.1 mg/dl
[2022-10-12 00:02] LABS: RBC Urine Automated >30 /hpf (0-4)
[2022-10-12] MEDS: D5W AND 1/2NSS 1,000 ML IV SCH (01:14)
[2022-10-12] MEDS: MoRPHine SULFATE 4 MG/ML 1 ML CARP\\VIAL IV PRN ×5 (03:24→20:37)
[2022-10-12] MEDS: ceFAZolin 2000MG 2,000 MG/15 ML SYR IV SCH (03:25)
[2022-10-12 05:18] LABS: BUN Creatinine Ratio 13.6 (10-20); Calcium 8.2 mg/dl (8.6-10.3); Creatinine Clr Calc Pharmacy 35.7 ml/min; Est GFR (African American) 50.8 ml/min; Est GFR (Non-African American) 43.8 ml/min; Potassium 4.7 mmol/L (3.5-5.1)
[2022-10-12 05:26] LABS: Basophils # (auto) 0.05 K/uL (0-0.2); Basophils % (auto) 0.2 %; Hematocrit (blood only) 37.2 % (42.0-52.0); Hemoglobin 12.5 g/dl (14.0-18.0); Immature Granulocytes % (auto) 0.5 %; Lymphocytes # (auto) 0.97 K/uL (1.2-3.4); Lymphocytes % (auto) 4.8 %; Mean Corpuscular Hemoglobin 33.2 pg (25.0-34.0); Mean Corpuscular Hgb Conc 33.6 g/dL (32.0-36.0); Mean Corpuscular Volume 98.7 fL (80.0-100.0); Mean Platelet Volume 10.6 fL (9.4-12.4); Monocytes # (auto) 2.37 K/uL (0.11-0.59); Monocytes % (auto) 11.8 %; Neutrophils # (auto) 16.63 K/uL (1.40-6.50); Neutrophils % (auto) 82.7 %; Platelet Count 267 K/uL (130-400); RDW Coefficient of Variation 12.9 % (11.5-14.5); RDW Standard Deviation 45.9 fL (36.4-46.3); Red Blood Count 3.77 M/uL (4.70-6.10); White Blood Count 20.12 K/ul (4.8-10.8)
--- NOTE | 2022-10-12 07:54 | Critical Care Progress Note ---
Date of Service October 12, 2022 Assessment & Plan (1) Aorto-iliac disease: (2) Chronic distal aortic occlusion: (3) BPH (benign prostatic hyperplasia): (4) COPD with emphysema: (5) Normal anion gap metabolic acidosis: (6) Leukocytosis: Plan -- Peripheral vascular disease based chronic distal aortic occlusion S/p aortobifemoral bypass by Dr. Cha on 10/11/2022 Monitor H&H Monitor lower extremity pulses Monitor for any weakness in the lower extremities -- [place] Likely prerenal from hypotensive episodes as well as clamping of the renal artery during the procedure Monitor BUN/creatinine Avoid nephrotoxic medications Strict ins and outs --Dyslipidemia Continue with statin -- Normal anion gap metabolic acidosis Elevated lactic acid Urine gap Positive -- COPD with active smoker > [id number] smoking history Not on any inhalers at home We will start on Incruse tomorrow -- Leukocytosis--> trending down Likely from the dexamethasone that he got today Hold off on antibiotics for the time being --Prophylaxis VTE: IPC GI: Protonix Lines: Peripheral, left radial Diet: N.p.o. Plan: In/out: +3.9 L, urine output 1225 Repeat BMP later today Continue with IPC's Change Protonix to 40 mg twice daily I will give the patient final mL of Plasma-Lyte. Continue with pain management Disposition as per vascular surgery Please note the above document was generated using voice recognition software. It may contain grammatical, syntax or spelling errors.Any formal questions or concerns about the content, text or information contained within the body of this dictation should be directly addressed to the provider for clarification. Admission and Anticipated Discharge Date Admission Date: October 08, 2022 Subjective Patient seen and examined at bedside. Was complaining of abdominal pain. Has been getting morphine for it. Denies any chest pain, no shortness of breath No nausea vomiting He does have an NGT which is draining dark bilious fluid. Review of Systems Review of Systems: All systems reviewed & are unremarkable except as noted in Subjective Physical Exam Physical Exam: Constitutional: No acute distress HEENT: EOMI, PERRLA Respiratory system: Decreased air entry bilaterally, no wheeze, no rhonchi, no crackles CVS: S1-S2 positive, no murmurs or gallops Abdomen: Soft, nontender, nondistended, positive bowel sounds x4 Extremities: +2 pulses bilaterally radialis/+1 bilateral dorsalis pedis, no cyanosis, no edema, warm lower extremities Neuro: Awake alert oriented x3 Psych: Normal mood and affect G/U: Positive [place] Skin: no rashes, warm and dry Lymphatic: no cervical or axillary lymphadenopathy Results & Data Results & Data Vital Signs (Past 12 Hours) Vital Signs Temp Pulse Pulse Resp BP BP Pulse Ox 10/12/22 06:00 93 H 19 90 10/12/22 06:00 166/104 H 10/12/22 05:30 94 H 22 88 L 10/12/22 05:01 155/120 H 10/12/22 05:01 95 H 17 90 10/12/22 05:00 86 15 92 10/12/22 04:30 92 H 13 92 10/12/22 04:01 93 H 13 91 10/12/22 04:01 158/87 H 10/12/22 04:00 92 H 14 92 10/12/22 03:30 92 H 13 91 10/12/22 03:02 172/99 H 10/12/22 03:02 87 17 91 10/12/22 03:00 83 13 92 10/12/22 02:30 88 22 91 10/12/22 02:00 86 14 93 10/12/22 02:00 138/80 10/12/22 01:00 86 11 L 93 10/12/22 01:00 137/81 10/12/22 00:01 124/81 10/12/22 00:01 85 14 93 10/12/22 00:00 89 26 H 93 10/11/22 23:30 88 11 L 93 10/11/22 23:01 150/99 H 10/11/22 23:01 90 13 93 10/11/22 23:00 89 14 93 10/11/22 22:30 88 12 92 10/11/22 22:01 160/69 H 10/11/22 22:01 88 13 93 10/11/22 22:00 88 14 93 10/11/22 21:30 86 13 93 10/11/22 21:02 88 11 L 93 10/11/22 21:02 137/81 10/11/22 21:00 87 11 L 91 10/11/22 20:30 80 11 L 92 10/11/22 20:01 119/76 0602/23 20:01 95 H 15 92 10/11/22 20:00 93 H 21 91 10/11/22 21:00 37 C 86 20 156/77 H 97 10/11/22 20:00 37.7 C H 81 20 148/70 H 95 O2 Del Method 10/12/22 06:00 10/12/22 06:00 10/12/22 05:30 10/12/22 05:01 10/12/22 05:01 10/12/22 05:00 10/12/22 04:30 10/12/22 04:01 10/12/22 04:01 10/12/22 04:00 10/12/22 03:30 10/12/22 03:02 10/12/22 03:02 10/12/22 03:00 10/12/22 02:30 10/12/22 02:00 10/12/22 02:00 10/12/22 01:00 10/12/22 01:00 10/12/22 00:01 10/12/22 00:01 10/12/22 00:00 10/11/22 23:30 10/11/22 23:01 10/11/22 23:01 10/11/22 23:00 10/11/22 22:30 10/11/22 22:01 10/11/22 22:01 10/11/22 22:00 10/11/22 21:30 10/11/22 21:02 10/11/22 21:02 10/11/22 21:00 10/11/22 20:30 10/11/22 20:01 10/11/22 20:01 10/11/22 20:00 10/11/22 21:00 Room Air 10/11/22 20:00 Room Air Laboratory Results 10/12/22 04:33 10/12/22 04:33 Coding Level of Care Code 39428 SUB INP/OBS CARE 3/50MIN Diagnoses Aorto-iliac disease I77.9 Chronic distal aortic occlusion I74.09 BPH (benign prostatic hyperplasia) N40.0 COPD with emphysema J43.9 Normal anion gap metabolic acidosis E87.20 Leukocytosis D72.829
[2022-10-12] MEDS: PANTOprazole 40 MG in SYRINGE 0 ML IV SCH ×2 (08:20→20:38)
[2022-10-12] MEDS: UMECLIDINIUM BROMIDE 62.5MCG/BLISTER 7 PUFFS/INHALER INH SCH (08:23)
[2022-10-12] MEDS ORDERED: PLASMA-LYTE A 500 ML IV ONE (08:44)
--- NOTE | 2022-10-12 08:52 | Surgery Progress Note ---
Date of Service October 12, 2022 Assessment & Plan (1) S/P aortobifemoral bypass surgery: Plan: Doing well post op day #1. He is mildly hypertensive at this time. His Hgb is unchanged from yesterday post op. Lactate was elevated. At this point, he appears to need more fluid. He will have a significant amount of third spacing in his retroperitoneum and pelvis due to the surgical procedure. (2) Renal insufficiency: Plan: There are two possibilities for his increase in his creatinine from pre op. One is that we clamped above the renals for approximately 5 minutes. He was given Mannitol prior to clamping. The second possibility is vasoconstriction from mild hypovolemia. I would expect a drop in hgb, no diastolic hypertension, and a near normal lactate if he was well hydrated. Agree with bolus from the clinical nursing intern, but would not slow his fluids down at this time. Admission and Anticipated Discharge Date Admission Date: October 08, 2022 Subjective Patient complaining of abdominal incisional pain. Feet feel better Physical Exam Constitutional: WD/WN, vitals as above Respiratory: normal respiratory effort; no respiratory distress Cardiovascular: Rate/Rhythm: regular rate and regular rhythm Vessels: posterior tibial pulses present (excellent to doppler) and dorsalis pedis pulses present (excellent to doppler) Extremities: normal capillary refill Gastrointestinal (Abdomen): Inspection/Auscultation: abdomen normal to inspection and + abdominal surgical incision (dressing intact on abdomen, no drainage); abdomen not distended Percussion/Palpation: + abdomen tender and abdomen soft Musculoskeletal: no cyanosis or clubbing, extremities motor strength 5/5 Skin: + incision (prevenas in groins working well) Neurologic: CN's II-XI intact bilaterally and moves all extremities Psychiatric: Orientation: alert and oriented x 3 Results & Data Vital Signs (Past 12 Hours) Vital Signs Temp Pulse Pulse Resp BP BP Pulse Ox 10/12/22 06:00 93 H 19 90 10/12/22 06:00 166/104 H 10/12/22 05:30 94 H 22 88 L 10/12/22 05:01 155/120 H 10/12/22 05:01 95 H 17 90 10/12/22 05:00 86 15 92 10/12/22 04:30 92 H 13 92 10/12/22 04:01 93 H 13 91 10/12/22 04:01 158/87 H 10/12/22 04:00 92 H 14 92 10/12/22 03:30 92 H 13 91 10/12/22 03:02 172/99 H 10/12/22 03:02 87 17 91 10/12/22 03:00 83 13 92 10/12/22 02:30 88 22 91 10/12/22 02:00 86 14 93 10/12/22 02:00 138/80 10/12/22 01:00 86 11 L 93 10/12/22 01:00 137/81 10/12/22 00:01 124/81 10/12/22 00:01 85 14 93 10/12/22 00:00 89 26 H 93 10/11/22 23:30 88 11 L 93 10/11/22 23:01 150/99 H 10/11/22 23:01 90 13 93 10/11/22 23:00 89 14 93 10/11/22 22:30 88 12 92 10/11/22 22:01 160/69 H 10/11/22 22:01 88 13 93 10/11/22 22:00 88 14 93 10/11/22 21:30 86 13 93 10/11/22 21:02 88 11 L 93 10/11/22 21:02 137/81 10/11/22 21:00 87 11 L 91 10/11/22 21:00 37 C 86 20 156/77 H 97 O2 Del Method 10/12/22 06:00 10/12/22 06:00 10/12/22 05:30 10/12/22 05:01 10/12/22 05:01 10/12/22 05:00 10/12/22 04:30 10/12/22 04:01 10/12/22 04:01 10/12/22 04:00 10/12/22 03:30 10/12/22 03:02 10/12/22 03:02 10/12/22 03:00 10/12/22 02:30 10/12/22 02:00 10/12/22 02:00 10/12/22 01:00 10/12/22 01:00 10/12/22 00:01 10/12/22 00:01 10/12/22 00:00 10/11/22 23:30 10/11/22 23:01 10/11/22 23:01 10/11/22 23:00 10/11/22 22:30 10/11/22 22:01 10/11/22 22:01 10/11/22 22:00 10/11/22 21:30 10/11/22 21:02 10/11/22 21:02 10/11/22 21:00 10/11/22 21:00 Room Air
[2022-10-12 09:00] LABS: Albumin Level 3.4 gm/dl (3.4-5.0); Bilirubin,Total 0.3 mg/dl (0.2-1.0); Total Protein 5.7 gm/dl (6.0-8.3)
[2022-10-12] MEDS: NICOTINE 21 MG/24 HR TDSY TD SCH (09:01)
[2022-10-12] MEDS: D5W AND NSS 1,000 ML IV SCH ×2 (09:01→20:38)
[2022-10-12] MEDS ORDERED: PANTOprazole 40 MG in SYRINGE 0 ML IV SCH (11:00)
[2022-10-12] MEDS: HYDROmorphone INJ 0.5 MG/0.5 ML SYR IV PRN ×2 (13:55→17:28)
[2022-10-12] MEDS: ACETAMINOPHEN 1,000 MG/100 ML VIAL IV PRN (14:43)
--- NOTE | 2022-10-12 14:54 | Communication Note ---
Date of Service: October 12, 2022 Critical CARE addendum: I was in my office when I noticed on the the monitor that the patient is getting tachycardic into the 130s low 140s I went into his room, patient was complaining of significant chills. He felt warm to touch. Patient's oral temperature was 36.8 which was likely not true. Rectal probe was placed and the temperature was 37.8 C Patient complained of mild shortness of breath. He was not able to answer questions. Abdominal pain and not significant change in intensity compared to before. Denies any dizziness No nausea vomiting EKG 10/12/2022 2:45 PM: A lot of artifacts, seems sinus tachycardia, no ST-T wave changes appreciated I will order blood cultures, patient did get cefazolin in the OR. I will give the patient Zosyn to cover for anaerobes. Nasal MRSA was negative Chest x-ray from yesterday did not show any abnormality. I will repeat a stat chest x-ray as well. Tylenol has been ordered to control the temperature. BMP being done right now along with procalcitonin Dr. Cha was made aware regarding the incident. Patient is +5.5 L since coming out of the OR. Need to be careful with IV fluids I have personally spent 36 minutes of critical care time in the direct management of this patient. This is a life/limb threatening event. This includes time spent evaluating patient, direct bedside care, chart review, placing orders, interpretation of diagnostic studies, discussion with consultants, patient, and family members, as well as other required patient management activities. This time is exclusive of all separately billable procedures, and teaching time and separate from and in addition to any other critical care service time. Please note the above document was generated using voice recognition software. It may contain grammatical, syntax or spelling errors. Coding Level of Care Code 36350 CRITICAL CARE 1ST 30-74M Time Spent (min) 36
[2022-10-12] MEDS ORDERED: PIPERACILLIN/TAZOBACTAM 4.5 GM in DEXTROSE 5% 100 ML IV ONE (15:00)
[2022-10-12] MEDS ORDERED: STAT IV Infusion **Titration per Protocol STA ×2 (15:17→16:04)
[2022-10-12] MEDS ORDERED: NOREPINEPHRINE/D5W 4 MG/250 ML PLCT IV SCH (15:30)
[2022-10-12] MEDS ORDERED: SODIUM CHLORIDE 0.9% 1000ML 1,000 ML IV ONE (15:35)
[2022-10-12 15:50] LABS: BUN Creatinine Ratio 12.2 (10-20); Calcium 7.8 mg/dl (8.6-10.3); Creatinine Clr Calc Pharmacy 25.3 ml/min; Est GFR (African American) 32.8 ml/min; Est GFR (Non-African American) 28.3 ml/min; Magnesium 2.5 mg/dl (1.7-2.4); Phosphorus 6.3 mg/dl (2.5-4.9); Potassium 5.2 mmol/L (3.5-5.1)
[2022-10-12] MEDS ORDERED: SODIUM BICARB 8.4% INJ 50 MEQ/50 ML SYR IV ONE (15:53)
[2022-10-12] MEDS ORDERED: SODIUM BICARB 8.4% INJ 50 MEQ/50 ML SYR IV STA (15:54)
--- NOTE | 2022-10-12 15:55 | XRay Report ---
XR chest 1V portable HISTORY: 76 years-old Male f/u acute shortness of breath COMPARISON: 10/11/2022 TECHNIQUE: AP view of the chest FINDINGS: Cardiomediastinal and hilar silhouettes are within normal limits. Pneumoperitoneum redemonstrated. Qu estionable pulmonary vascular congestion. Distal tip of enteric tube projects over the stomach. No pn eumothorax, pleural effusion or overt pulmonary edema. Emphysema with chronic interstitial coarsening . Degenerative changes of the shoulders and spine. IMPRESSION: 1. Emphysema with chronic interstitial coarsening and questioned pulmonary vascular congestion. 2. Pneumoperitoneum redemonstrated, possibly related to the patient's abdominal surgery. ACT 112: Negative or not required by law. The above report was generated using voice recognition software. It may contain grammatical, syntax o r spelling errors. Electronically signed by: José Luis Frank M.D. 10/12/2022 3:54 PM
[2022-10-12 16:32] LABS: iSTAT Allen Test Pass; iSTAT Art Bld Gas pCO2 Correct 33 mmHg (35-46); iSTAT Art Bld Gas pH Corrected 7.402 (7.35-7.45); iSTAT Arterial Blood Gas HCO3 20 meg/L (19-24); iSTAT Arterial Blood Gas pCO2 32 mmHg (35-46); iSTAT Arterial Blood Gas pH 7.41 (7.35-7.45); iSTAT Arterial Blood Gas pO2 63 mmHg (80-95); iSTAT Arterial Blood Gas pO2 C 65; iSTAT Carbon Dioxide 21 mmol/L (24-31); iSTAT Hematocrit 27 % (42-52); iSTAT Hemoglobin 9.2 g/dl (14.0-18.0); iSTAT Potassium 4.1 mmol/L (3.3-5.0); iSTAT Site R Radial; iSTAT Sodium 140 mmol/L (135-144)
[2022-10-12 16:55] LABS: Hematocrit (blood only) 29.2 % (42.0-52.0); Hemoglobin 9.8 g/dl (14.0-18.0); Mean Corpuscular Hemoglobin 33.6 pg (25.0-34.0); Mean Corpuscular Hgb Conc 33.6 g/dL (32.0-36.0); Mean Platelet Volume 10.9 fL (9.4-12.4); Platelet Count 185 K/uL (130-400); RDW Coefficient of Variation 13.2 % (11.5-14.5); RDW Standard Deviation 47.9 fL (36.4-46.3); Red Blood Count 2.92 M/uL (4.70-6.10)
[2022-10-12] MEDS: VASOPRESSIN 20 UNITS in 0.9 % SODIUM CHLORIDE 100 ML IV SCH (16:56)
[2022-10-12 17:17] LABS: Basophils # (auto) 0.02 K/uL (0-0.2); Basophils % (auto) 0.2 %; Dohle Bodies 1+; Echinocytes 1+; Immature Granulocytes # (auto) 0.04 K/uL (0.01-0.20); Immature Granulocytes % (auto) 0.3 %; Lymphocytes # (auto) 0.76 K/uL (1.2-3.4); Lymphocytes % (auto) 6.6 %; Monocytes % (auto) 7.8 %; Neutrophils # (auto) 9.78 K/uL (1.40-6.50); Neutrophils % (auto) 85.1 %; Toxic Vacuolation 1+
--- NOTE | 2022-10-12 18:38 | CT Scan Report ---
ABDOMEN AND PELVIS CT WITHOUT CONTRAST CT DOSE: 1228.85 mGy.cm HISTORY: Acute generalized abdominal pain . Follow-up study in a patient with aorto iliac occlusion w ith distal reconstitution. 3.5 cm infrarenal abdominal aortic aneurysm. Ischemic bowel TECHNIQUE: Multiaxial CT images of the abdomen and pelvis were performed without contrast. A dose lo wering technique was utilized adhering to the principles of ALARA. COMPARISON STUDY: CTA 10/08/2022 FINDINGS: Coronary artery calcifications. Mild cardiomegaly. Decreased attenuation of the cardiac blo od pool suggestive of anemia. Small pleural effusions with dependent bibasilar consolidation. Unremar kable spleen, pancreas and right adrenal gland. 1.4 similar left adrenal gland adenoma. Moderately di stended gallbladder. Unremarkable liver. Kidneys are within normal limits. No hydronephrosis. There are a few small renal cysts again noted. U rinary bladder wall thickening with Pember[place] catheter in place. Air within the bladder lumen, likely sec ondary to instrumentation. Prostatomegaly. Extensive atherosclerosis of the abdominal aorta and iliac arteries. Postop changes of interval aortobiiliac stent graft placement. There is interval decreased transverse dimension of the [place] abdominal aorta and iliac arteries. Surgical [place]ce[place] with subcuta neous emphysema and edema within the bilateral inguinal tissues. Small volume of hemoperitoneum with retroperitoneal fluid/hemorrhage with foci of retroperitoneal air. No large discrete retroperitoneal hematoma. Enteric tube is coiled within the proximal gastric body. Duodenal diverticula. Mild associated gastri c wall thickening. Moderate pneumoperitoneum. Rectal catheter in place. Colonic diverticulosis. Mild wall thickening is noted involving a few loops of small bowel within the abdominal right lower quadra nt. No pneumatosis identified. IMPRESSION: 1. Limited exam without the contrast. 2. Interval placement of an aortobiiliac stent graft. Small amount of retroperitoneal air is noted al codie with small to moderate amount of retroperitoneal and intraperitoneal hemorrhage which may be on a postsurgical basis. 3. Moderate amount of pneumoperitoneum. No portal venous gas or pneumoperitoneum identified. 4. Mild nonspecific wall thickening noted involving a few loops of distal ileum. 5. Colonic diverticulosis. 6. Small pleural effusions with dependent bibasilar consolidations suggestive of atelectasis versus p neumonitis. 7. Additional findings as above. ACT 112: Negative or not required by law. The above report was generated using voice recognition software. It may contain grammatical, syntax o r spelling errors. Electronically signed by: José Luis Frank M.D. 10/12/2022 6:35 PM
[2022-10-12] MEDS: PIPERACILLIN/TAZOBACTAM 4.5 GM in DEXTROSE 5% 100 ML IV SCH (20:38)
[2022-10-12 21:31] LABS: Albumin Globulin Ratio 1.2 (0.9-2); Albumin Level 2.6 gm/dl (3.4-5.0); BUN Creatinine Ratio 13.6 (10-20); Bilirubin,Total 0.4 mg/dl (0.2-1.0); Calcium 7.2 mg/dl (8.6-10.3); Creatinine Clr Calc Pharmacy 27.1 ml/min; Est GFR (African American) 35.7 ml/min; Est GFR (Non-African American) 30.8 ml/min; Globulin 2.1 gm/dl (2.5-4.0); Potassium 4.1 mmol/L (3.5-5.1); Total Protein 4.7 gm/dl (6.0-8.3)
[2022-10-13] MEDS: D5W AND NSS 1,000 ML IV SCH ×3 (00:52→23:29)
[2022-10-13] MEDS: MoRPHine SULFATE 4 MG/ML 1 ML CARP\\VIAL IV PRN ×5 (00:52→21:37)
[2022-10-13] MEDS: VASOPRESSIN 20 UNITS in 0.9 % SODIUM CHLORIDE 100 ML IV SCH (00:57)
[2022-10-13] MEDS: PIPERACILLIN/TAZOBACTAM 4.5 GM in DEXTROSE 5% 100 ML IV SCH ×3 (04:11→20:23)
[2022-10-13 05:55] LABS: Hematocrit (blood only) 29.2 % (42.0-52.0); Hemoglobin 9.9 g/dl (14.0-18.0); Mean Corpuscular Hemoglobin 33.8 pg (25.0-34.0); Mean Corpuscular Hgb Conc 33.9 g/dL (32.0-36.0); Mean Corpuscular Volume 99.7 fL (80.0-100.0); Platelet Count 201 K/uL (130-400); RDW Coefficient of Variation 13.3 % (11.5-14.5); RDW Standard Deviation 48.4 fL (36.4-46.3); Red Blood Count 2.93 M/uL (4.70-6.10); White Blood Count 17.91 K/ul (4.8-10.8)
[2022-10-13 06:09] LABS: Calcium 7.4 mg/dl (8.6-10.3); Creatinine Clr Calc Pharmacy 26.3 ml/min; Est GFR (African American) 34.3 ml/min; Est GFR (Non-African American) 29.6 ml/min; Magnesium 2.2 mg/dl (1.7-2.4); Phosphorus 4.2 mg/dl (2.5-4.9)
[2022-10-13 06:17] LABS: Basophils # (auto) 0.02 K/uL (0-0.2); Basophils % (auto) 0.1 %; Dohle Bodies 1+; Immature Granulocytes # (auto) 0.08 K/uL (0.01-0.20); Immature Granulocytes % (auto) 0.4 %; Lymphocytes # (auto) 1.25 K/uL (1.2-3.4); Monocytes # (auto) 1.57 K/uL (0.11-0.59); Monocytes % (auto) 8.8 %; Neutrophils # (auto) 14.99 K/uL (1.40-6.50); Neutrophils % (auto) 83.7 %; Toxic Vacuolation 1+
--- NOTE | 2022-10-13 08:26 | Surgery Progress Note ---
Date of Service October 13, 2022 Assessment & Plan (1) S/P aortobifemoral bypass surgery: Plan: POD#2. Doing better today. Hgb now down 9.9. He responded well to fluids yesterday. Not enough fluid resuscitation post op had a big contribution to his overall condition yesterday. Will leave NG in one more day. Will give him sips of water and ice chips today. (2) Renal insufficiency: Plan: Creatinine improving somewhat. Most likely elevated due to short period of aortic crossclamping above the renal arteries and post op dehydration from third spacing into his abdomen and retroperitoneum. Admission and Anticipated Discharge Date Admission Date: October 08, 2022 Subjective Patient feeling much better today. Abdominal pain better. Physical Exam Constitutional: WD/WN, vitals as above Respiratory: normal respiratory effort; no respiratory distress Cardiovascular: Rate/Rhythm: regular rate and regular rhythm Vessels: posterior tibial pulses present (palbable bilat) and dorsalis pedis pulses present (palbable bilat) Gastrointestinal (Abdomen): Inspection/Auscultation: abdomen normal to inspection; abdomen not distended Percussion/Palpation: + abdomen tender and abdomen soft; no guarding Musculoskeletal: no cyanosis or clubbing, extremities motor strength 5/5 Skin: + incision (prevena drsg intact, abd dressing without drainage) Neurologic: CN's II-XI intact bilaterally and moves all extremities Psychiatric: Orientation: alert and oriented x 3 Results & Data Vital Signs (Past 12 Hours) Vital Signs Temp Pulse Resp BP Pulse Ox O2 Del Method O2 Flow Rate 10/13/22 06:30 37.8 C H 101 H 15 96 10/13/22 06:00 37.8 C H 103 H 22 94 10/13/22 06:00 131/76 10/13/22 05:30 37.6 C H 99 H 17 97 10/13/22 05:00 37.6 C H 99 H 16 97 10/13/22 05:00 119/70 10/13/22 04:30 37.7 C H 100 H 15 96 10/13/22 04:00 37.6 C H 99 H 20 97 10/13/22 04:00 127/69 10/13/22 03:00 37.6 C H 100 H 18 96 10/13/22 03:00 119/67 06/04/23 02:00 37.6 C H 98 H 20 96 10/13/22 02:00 114/63 10/13/22 01:00 37.8 C H 99 H 17 94 10/13/22 01:00 96/60 L 10/13/22 04:00 Nasal Cannula 4 10/13/22 00:30 37.8 C H 102 H 23 97 10/13/22 00:00 37.8 C H 98 H 24 94 10/13/22 00:00 134/80 10/12/22 23:30 37.8 C H 96 H 19 93 10/12/22 23:00 37.8 C H 101 H 19 94 10/12/22 23:00 140/76 10/12/22 22:30 37.9 C H 104 H 21 93 10/12/22 22:01 123/73 10/12/22 22:01 37.8 C H 100 H 16 94 10/12/22 22:00 37.8 C H 102 H 16 94 10/12/22 21:30 37.9 C H 102 H 21 93 10/12/22 21:00 38.0 C H 105 H 18 94 10/12/22 21:00 109/64 10/12/22 20:47 38.0 C H 107 H 18 96 10/12/22 20:47 120/82 10/12/22 20:30 38.0 C H 106 H 18 94
--- NOTE | 2022-10-13 08:32 | Critical Care Progress Note ---
Date of Service October 13, 2022 Assessment & Plan (1) Aorto-iliac disease: (2) Chronic distal aortic occlusion: (3) BPH (benign prostatic hyperplasia): (4) COPD with emphysema: (5) Normal anion gap metabolic acidosis: (6) Leukocytosis: (7) Acute respiratory failure with hypoxia: Plan -- Septic shock Source unclear, could be intra-abdominal Continue with antibiotics Follow-up blood culture Procalcitonin 2.26 CT abdomen pelvis 10/12/2022: No portal venous gas or pneumoperitoneum, nonspecific wall thickening few loops of distal ileum, mild bilateral pleural effusion with dependent atelectasis --Acute hypoxic respiratory failure Likely from dependent atelectasis as well as pulmonary edema Can do with O2 supplementation to keep oxygen saturation 90-92% BiPAP if need be in future ABG 10/12/2022: 7.41/32/63 -- Peripheral vascular disease based chronic distal aortic occlusion S/p aortobifemoral bypass by Dr. Cha on 10/11/2022 Monitor H&H Monitor lower extremity pulses Monitor for any weakness in the lower extremities -- [place] Nonoliguric Likely prerenal from hypotensive episodes as well as clamping of the renal artery during the procedure Monitor BUN/creatinine Avoid nephrotoxic medications Strict ins and outs --Dyslipidemia Continue with statin -- S/p normal anion gap metabolic acidosis Elevated lactic acid Urine gap Positive -- COPD with active smoker > [id number] smoking history Not on any inhalers at home We will start on Incruse tomorrow -- Leukocytosis--> trending down Likely from the dexamethasone that he got today Hold off on antibiotics for the time being --Prophylaxis VTE: IPC GI: Protonix Lines: Peripheral, left radial Diet: N.p.o. Plan: In/out: +3.8 L, urine output 920, +8 L since coming to the hospital Has been off vasopressors as of midnight. Lactic acid is trending down Add incentive spirometry for dependent atelectasis. Patient's kidney function is still around 2, he is making urine. Potassium is 5. No urgent need for dialysis It seems patient is likely in phase of ATN. Hopefully he will turn around and start making urine. Trial of Lasix could be thought of later today if there is no improvement in urine output [facility] later today Disposition as per vascular surgery Please note the above document was generated using voice recognition software. It may contain grammatical, syntax or spelling errors.Any formal questions or concerns about the content, text or information contained within the body of this dictation should be directly addressed to the provider for clarification. Admission and Anticipated Discharge Date Admission Date: October 08, 2022 Subjective Patient seen and examined at bedside. No acute distress. Patient has been off vasopressors since 12 AM He is more calm today. Says that the abdominal pain is much better controlled. Denies any nausea vomiting No headache. He was saturating 94-95% on 2 L nasal cannula. Wanted to have something to eat/drink Review of Systems Review of Systems: All systems reviewed & are unremarkable except as noted in Subjective Physical Exam Physical Exam: Constitutional: No acute distress HEENT: EOMI, PERRLA Respiratory system: Decreased air entry bilaterally, no wheeze, no rhonchi, positive crackles bilateral lower lobes CVS: S1-S2 positive, no murmurs or gallops Abdomen: Soft, nontender, nondistended, positive bowel sounds x4 Extremities: +2 pulses bilaterally radialis, right dorsalis pedis/+1 left dorsalis pedis, no cyanosis, no edema, warm lower extremities Neuro: Awake alert oriented x3 Psych: Normal mood and affect G/U: Positive [place] Skin: no rashes, warm and dry Lymphatic: no cervical or axillary lymphadenopathy Results & Data Results & Data Vital Signs (Past 12 Hours) Vital Signs Temp Pulse Resp BP Pulse Ox O2 Del Method O2 Flow Rate 10/13/22 06:30 37.8 C H 101 H 15 96 10/13/22 06:00 37.8 C H 103 H 22 94 10/13/22 06:00 131/76 10/13/22 05:30 37.6 C H 99 H 17 97 10/13/22 05:00 37.6 C H 99 H 16 97 10/13/22 05:00 119/70 10/13/22 04:30 37.7 C H 100 H 15 96 10/13/22 04:00 37.6 C H 99 H 20 97 10/13/22 04:00 127/69 10/13/22 03:00 37.6 C H 100 H 18 96 10/13/22 03:00 119/67 10/13/22 02:00 37.6 C H 98 H 20 96 10/13/22 02:00 114/63 10/13/22 01:00 37.8 C H 99 H 17 94 10/13/22 01:00 96/60 L 10/13/22 04:00 Nasal Cannula 4 10/13/22 00:30 37.8 C H 102 H 23 97 10/13/22 00:00 37.8 C H 98 H 24 94 10/13/22 00:00 134/80 10/12/22 23:30 37.8 C H 96 H 19 93 10/12/22 23:00 37.8 C H 101 H 19 94 10/12/22 23:00 140/76 10/12/22 22:30 37.9 C H 104 H 21 93 10/12/22 22:01 123/73 10/12/22 22:01 37.8 C H 100 H 16 94 10/12/22 22:00 37.8 C H 102 H 16 94 10/12/22 21:30 37.9 C H 102 H 21 93 10/12/22 21:00 38.0 C H 105 H 18 94 10/12/22 21:00 109/64 10/12/22 20:47 38.0 C H 107 H 18 96 10/12/22 20:47 120/82 10/12/22 20:30 38.0 C H 106 H 18 94 Laboratory Results 10/13/22 05:34 10/13/22 05:34 Coding Level of Care Code 53569 SUB INP/OBS CARE 3/50MIN Diagnoses Aorto-iliac disease I77.9 Chronic distal aortic occlusion I74.09 BPH (benign prostatic hyperplasia) N40.0 COPD with emphysema J43.9 Normal anion gap metabolic acidosis E87.20 Leukocytosis D72.829 Acute respiratory failure with hypoxia J96.01
[2022-10-13] MEDS: NICOTINE 21 MG/24 HR TDSY TD SCH (08:53)
[2022-10-13] MEDS: UMECLIDINIUM BROMIDE 62.5MCG/BLISTER 7 PUFFS/INHALER INH SCH (08:53)
[2022-10-13] MEDS: PANTOprazole 40 MG in SYRINGE 0 ML IV SCH ×2 (08:56→20:24)
[2022-10-13] MEDS ORDERED: Nursing to Pharmacy Communication SCH (09:00)
[2022-10-13] MEDS: ACETAMINOPHEN 1,000 MG/100 ML VIAL IV PRN (13:01)
[2022-10-14] MEDS: PIPERACILLIN/TAZOBACTAM 4.5 GM in DEXTROSE 5% 100 ML IV SCH ×2 (05:12→12:13)
[2022-10-14 05:55] LABS: Basophils # (auto) 0.03 K/uL (0-0.2); Basophils % (auto) 0.2 %; Hematocrit (blood only) 26.8 % (42.0-52.0); Immature Granulocytes # (auto) 0.12 K/uL (0.01-0.20); Immature Granulocytes % (auto) 0.7 %; Lymphocytes # (auto) 0.77 K/uL (1.2-3.4); Lymphocytes % (auto) 4.2 %; Mean Corpuscular Hemoglobin 33.2 pg (25.0-34.0); Mean Corpuscular Hgb Conc 33.6 g/dL (32.0-36.0); Mean Corpuscular Volume 98.9 fL (80.0-100.0); Mean Platelet Volume 10.8 fL (9.4-12.4); Monocytes % (auto) 9.3 %; Neutrophils # (auto) 15.61 K/uL (1.40-6.50); Neutrophils % (auto) 85.6 %; Platelet Count 209 K/uL (130-400); RDW Coefficient of Variation 13.4 % (11.5-14.5); RDW Standard Deviation 48.6 fL (36.4-46.3); Red Blood Count 2.71 M/uL (4.70-6.10); White Blood Count 18.23 K/ul (4.8-10.8)
[2022-10-14 05:56] LABS: Calcium 7.7 mg/dl (8.6-10.3); Creatinine Clr Calc Pharmacy 34.2 ml/min; Est GFR (African American) 46.7 ml/min; Est GFR (Non-African American) 40.3 ml/min; Magnesium 2.4 mg/dl (1.7-2.4); Phosphorus 3.1 mg/dl (2.5-4.9); Potassium 4.2 mmol/L (3.5-5.1)
[2022-10-14] MEDS: UMECLIDINIUM BROMIDE 62.5MCG/BLISTER 7 PUFFS/INHALER INH SCH (08:28)
[2022-10-14] MEDS: NICOTINE 21 MG/24 HR TDSY TD SCH (08:28)
[2022-10-14] MEDS: PANTOprazole 40 MG in SYRINGE 0 ML IV SCH ×2 (08:31→20:21)
--- NOTE | 2022-10-14 08:51 | Critical Care Progress Note ---
Date of Service October 14, 2022 Assessment & Plan (1) S/P aortobifemoral bypass surgery: (2) Acute respiratory failure with hypoxia: (3) Renal insufficiency: (4) COPD with emphysema: (5) Peripheral arterial disease: Plan Reason Critically Ill: 76-year-old male who is postop day 3 status post aortobifemoral bypass in the setting of chronic occlusion who developed profound lactic acidosis and hypoxic respiratory failure which are now both improved. NEURO - * [facility] ICU * Postoperative Pain: * Continue w/ PRN meds per surgery. CARDIAC/VASCULAR - * Status post aortobifemoral bypass: * Palpable pulse to the RIGHT dorsalis pedis area with dopplerable pulses to the RIGHT posterior tibial and LEFT-sided DP/PT. * Patient with complete resolve of complaints of pain to the lower extremities. * Sensation completely intact. * Postoperative dressings clean, dry, intact. * Continue per vascular surgery recommendations * Monitor on telemetry. RESPIRATORY - * Acute respiratory failure with hypoxemia: * Multifactorial in the postoperative COPD patient with likely degree of volume overload. * Has been titrated down to 2 L nasal cannula. * Continue to encourage incentive spirometry. * Addition of Incruse Ellipta. * Titrate down O2 as tolerated. GI/NUTRITION - * OGT in place: * Draining bilious material. * Defer to surgery for hopeful D/C and progression of diet. * Prophylaxis: * Protonix RENAL/LYTES - * EVENS: * Likely in the setting of hypotension. * Improving now. * Making adequate urine. - * Moreau in place - Strict I&Os. * Hopefully can mobilize patient and D/C moreau. ENDO - * No h/o DM or Thyroid Dz * BSGs per unit protocol. ISS --> gtt per unit policy. HEME - * Stable H&H * Monitor for s/s bleeding s/p vascular intervention. ID - * Empiric antibiotics per surgery. * Cultures negative x2. * Can likely deescalate. LINES/IV ACCESS - * PIVs x2 * Moreau * OGT DVT PROPHYLAXIS - * Defer chemoprophylaxis to vascular surgery. * SCDs I have personally spent 35 minutes of critical care time in the direct management of this patient. This is a life/limb threatening event. This includes time spent evaluating patient, direct bedside care, chart review, placing orders, interpretation of diagnostic studies, discussion with consultants, patient, and family members, as well as other required patient management activities. This time is exclusive of all separately billable procedures, and teaching time and separate from and in addition to any other critical care service time. Thank you for allowing us to participate in the care of this patient. Please refer to my attending physician's documentation for any further recommendations. Patient is stable for downgrade from the ICU at this time. Admission and Anticipated Discharge Date Admission Date: October 08, 2022 Subjective Patient seen and evaluated bedside today. He reports that he is feeling much better and less discomfort. His breathing has improved. He was encouraged to continue to utilize his incentive spirometer. He denies any complaints of pain in his legs. He reports feeling irritated by the OG tube. Review of Systems Review of Systems: Unchanged from prior Physical Exam Physical Exam: VITAL SIGNS - Vital signs and nursing notes were reviewed. GENERAL - 76-year-old male appearing his stated age who is in no acute distress. Communicates well with provider and answers questions appropriately. SKIN - Incision site dressings in the mid abdomen and bilateral groins clean, dry, and intact. NECK - Neck with FROM. LUNGS - Auscultation reveals coarse breath sounds without wheezes or rales. CARDIAC - RRR with S1/S2. No murmur, rubs, or gallops appreciated. ABDOMEN - Dressings clean, dry, and intact. BS hypoactive all four quadrants. No tenderness, palpable masses, or ascites noted. EXTREMITIES - No peripheral cyanosis. No pretibial edema present. Palpable RIGHT DP with dopplerable RIGHT PT and LEFT DP/PT. PSYCH - A&Ox3 and cooperates fully with examiner. Pt is very pleasant and i nteracts well with examiner. Results & Data Results & Data Vital Signs (Past 12 Hours) Vital Signs Pulse Resp BP Pulse Ox O2 Del Method O2 Flow Rate 10/14/22 08:10 Nasal Cannula 2 10/14/22 06:00 102 H 16 97 10/14/22 06:00 138/86 10/14/22 05:30 103 H 16 96 10/14/22 05:00 102 H 16 97 10/14/22 05:00 140/74 10/14/22 04:30 103 H 17 96 10/14/22 04:01 102 H 19 95 10/14/22 04:01 172/77 H 06/05/23 04:00 100 H 17 94 06/05/23 03:30 107 H 21 96 10/14/22 03:00 101 H 16 96 10/14/22 03:00 146/69 H 10/14/22 02:31 100 H 14 95 10/14/22 02:01 109 H 26 H 94 10/14/22 02:01 143/95 H 10/14/22 02:00 112 H 20 86 L 10/14/22 01:30 100 H 14 97 10/14/22 01:01 100 H 15 95 10/14/22 00:31 98 H 16 96 10/14/22 00:00 98 H 14 97 10/14/22 00:00 137/70 10/13/22 23:30 96 H 13 97 10/13/22 23:00 95 H 16 95 10/13/22 23:00 138/84 10/13/22 22:30 102 H 13 97 10/13/22 22:00 110 H 20 92 10/13/22 22:00 116/90 10/13/22 21:30 99 H 32 H 94 10/13/22 21:01 108 H 17 93 10/13/22 21:01 148/79 H 10/13/22 21:00 101 H 22 92 Coding Level of Care Code 91834 CRITICAL CARE 1ST 30-74M Diagnoses S/P aortobifemoral bypass surgery Z95.828 Acute respiratory failure with hypoxia J96.01 Renal insufficiency N28.9 COPD with emphysema J43.9 Peripheral arterial disease I73.9 Time Spent (min) 35
[2022-10-14] MEDS: MoRPHine SULFATE 4 MG/ML 1 ML CARP\\VIAL IV PRN (09:29)
--- NOTE | 2022-10-14 10:31 | Surgery Progress Note ---
Date of Service October 14, 2022 Assessment & Plan (1) S/P aortobifemoral bypass surgery: Plan: POD#3. Doing well today. Hgb now 9.0. He responded well to fluids, and appears stable, although slightly tachycardic. NG tube to be removed today, has taken water without incident. Pt seen by Dr Cha as well. Transfer to PCU. (2) Renal insufficiency: Plan: Creatinine improving. Admission and Anticipated Discharge Date Admission Date: October 08, 2022 Subjective 76 yo m POD #3 after aortobifemoral BPG, seen in f/u today. Pt states feeling ok, just tired. Has pain in incisions only. No foot pain. Has been taking some water PO without problems. states no flatus. No bloating or nausea. No other new complaints. Review of Systems Review of Systems: All systems reviewed & are unremarkable except as noted in HPI & below Physical Exam Constitutional: WD/WN, vitals as above Respiratory: normal respiratory effort, lungs clear to auscultation normal respiratory effort; no respiratory distress Cardiovascular: Rate/Rhythm: regular rate and regular rhythm Vessels: posterior tibial pulses present (palbable bilat), dorsalis pedis pulses present (palbable bilat) and radial pulses present; + femoral pulses abnormal Extremities: normal capillary refill Gastrointestinal (Abdomen): Inspection/Auscultation: abdomen normal to inspection and + abdominal surgical incision (dressing intact on abdomen, no drainage); abdomen not distended Percussion/Palpation: + abdomen tender and abdomen soft; no guarding Musculoskeletal: no cyanosis or clubbing, extremities motor strength 5/5 Extremities: strength 5/5 throughout Skin: + incision (prevena drsg intact, abd dressing without drainage) Neurologic: CN's II-XI intact bilaterally, normal sensation to monofilament (Slight decrease sensation in both feet) and moves all extremities Psychiatric: Orientation: alert and oriented x 3 Results & Data Vital Signs (Past 12 Hours) Vital Signs Pulse Resp BP Pulse Ox O2 Del Method O2 Flow Rate 10/14/22 08:10 Nasal Cannula 2 10/14/22 06:00 102 H 16 97 10/14/22 06:00 138/86 10/14/22 05:30 103 H 16 96 10/14/22 05:00 102 H 16 97 10/14/22 05:00 140/74 10/14/22 04:30 103 H 17 96 10/14/22 04:01 102 H 19 95 10/14/22 04:01 172/77 H 10/14/22 04:00 100 H 17 94 10/14/22 03:30 107 H 21 96 10/14/22 03:00 101 H 16 96 10/14/22 03:00 146/69 H 10/14/22 02:31 100 H 14 95 10/14/22 02:01 109 H 26 H 94 10/14/22 02:01 143/95 H 10/14/22 02:00 112 H 20 86 L 10/14/22 01:30 100 H 14 97 10/14/22 01:01 100 H 15 95 10/14/22 00:31 98 H 16 96 10/14/22 00:00 98 H 14 97 10/14/22 00:00 137/70 10/13/22 23:30 96 H 13 97 10/13/22 23:00 95 H 16 95 10/13/22 23:00 138/84 10/13/22 22:30 102 H 13 97
[2022-10-14] MEDS: D5W AND NSS 1,000 ML IV SCH (12:14)
--- NOTE | 2022-10-14 21:26 | Electrocardiogram Report ---
Test Reason : Blood Pressure : / mmHG Vent. Rate : 141 BPM Atrial Rate : 141 BPM P-R Int : 118 ms QRS Dur : 078 ms QT Int : 276 ms P-R-T Axes : 080 055 077 degrees QTc Int : 422 ms Poor data quality, interpretation may be adversely affected Sinus tachycardia Low voltage QRS Nonspecific ST and T wave abnormality Abnormal ECG No previous ECGs available Confirmed by Kamar Hill ([id number]) on 10/14/2022 9:25:59 PM Referred By: Joaquim Cha Confirmed By:Kamar Hill
[2022-10-15] MEDS: D5W AND NSS 1,000 ML IV SCH (05:57)
[2022-10-15 07:18] LABS: Calcium 7.8 mg/dl (8.6-10.3); Est GFR (African American) 76.2 ml/min; Est GFR (Non-African American) 65.8 ml/min; Magnesium 2.2 mg/dl (1.7-2.4); Phosphorus 2.4 mg/dl (2.5-4.9); Potassium 3.5 mmol/L (3.5-5.1)
[2022-10-15] MEDS: UMECLIDINIUM BROMIDE 62.5MCG/BLISTER 7 PUFFS/INHALER INH SCH (08:30)
[2022-10-15] MEDS: PANTOprazole 40 MG in SYRINGE 0 ML IV SCH ×2 (08:30→20:50)
[2022-10-15] MEDS: NICOTINE 21 MG/24 HR TDSY TD SCH (09:08)
--- NOTE | 2022-10-15 09:37 | Surgery Progress Note ---
Date of Service October 15, 2022 Assessment & Plan (1) S/P aortobifemoral bypass surgery: Plan: POD#4. Doing well today. Will begin advance diet. States has not been OOB except to chair. Will increase activity today. Start PT/OT. Consult case management for home with HH vs short term rehab. Hopefully d/c . (2) Renal insufficiency: Plan: Creatinine improving. UOP improving. Admission and Anticipated Discharge Date Admission Date: October 08, 2022 Subjective 76 yo m POD #4 after aortobifemoral BPG, seen in f/u today. Pt states feeling ok, just tired. Has pain in incisions only. No foot pain. Began clear liquid diet yesterday, no problems. + flatus. No bloating or nausea. No other new complaints. Review of Systems Review of Systems: All systems reviewed & are unremarkable except as noted in HPI & below Physical Exam Constitutional: WD/WN, vitals as above Respiratory: normal respiratory effort, lungs clear to auscultation normal respiratory effort; no respiratory distress Cardiovascular: Rate/Rhythm: regular rate and regular rhythm Vessels: posterior tibial pulses present (palbable bilat), dorsalis pedis pulses present (palbable bilat) and radial pulses present; + femoral pulses abnormal Extremities: normal capillary refill Gastrointestinal (Abdomen): Inspection/Auscultation: abdomen normal to inspection and + abdominal surgical incision (dressing intact on abdomen, no drainage); abdomen not distended Percussion/Palpation: + abdomen tender and abdomen soft; no guarding Musculoskeletal: no cyanosis or clubbing, extremities motor strength 5/5 Extremities: strength 5/5 throughout Skin: + incision (prevena drsg intact, abd dressing without drainage) Neurologic: CN's II-XI intact bilaterally, normal sensation to monofilament (Slight decrease sensation in both feet) and moves all extremities Psychiatric: Orientation: alert and oriented x 3 Results & Data Vital Signs (Past 12 Hours) Vital Signs Temp Pulse Pulse Resp BP Pulse Ox O2 Del Method 10/15/22 07:00 36.8 C 92 H 19 155/76 H 94 Room Air 10/15/22 03:00 36.9 C 88 20 147/81 H 90 Room Air 10/14/22 22:00 100 H 10/14/22 23:00 36.8 C 93 H 19 159/82 H 90 Room Air
[2022-10-15 11:30] LABS: Basophils # (auto) 0.03 K/uL (0-0.2); Basophils % (auto) 0.2 %; Eosinophils # (auto) 0.04 K/uL (0-0.50); Eosinophils % (auto) 0.2 %; Hematocrit (blood only) 24.9 % (42.0-52.0); Hemoglobin 8.3 g/dl (14.0-18.0); Immature Granulocytes # (auto) 0.29 K/uL (0.01-0.20); Immature Granulocytes % (auto) 1.5 %; Lymphocytes # (auto) 0.92 K/uL (1.2-3.4); Lymphocytes % (auto) 4.8 %; Mean Corpuscular Hemoglobin 33.1 pg (25.0-34.0); Mean Corpuscular Hgb Conc 33.3 g/dL (32.0-36.0); Mean Corpuscular Volume 99.2 fL (80.0-100.0); Mean Platelet Volume 11.1 fL (9.4-12.4); Monocytes # (auto) 1.76 K/uL (0.11-0.59); Monocytes % (auto) 9.2 %; Neutrophils # (auto) 16.03 K/uL (1.40-6.50); Neutrophils % (auto) 84.1 %; Platelet Count 202 K/uL (130-400); RDW Coefficient of Variation 13.3 % (11.5-14.5); RDW Standard Deviation 48.6 fL (36.4-46.3); Red Blood Count 2.51 M/uL (4.70-6.10); White Blood Count 19.07 K/ul (4.8-10.8)
[2022-10-15] MEDS: DOCUSATE SODIUM 100 MG CAP PO SCH ×2 (12:12→20:51)
[2022-10-15] MEDS ORDERED: SODIUM CHLORIDE 0.9% 250 ML IV PRN ×2 (14:11→14:26)
[2022-10-15 15:32] LABS: Uric Acid, Random Urine 26 mg/dL
[2022-10-16 06:56] LABS: BUN Creatinine Ratio 21.1 (10-20); Calcium 7.8 mg/dl (8.6-10.3); Creatinine Clr Calc Pharmacy 64.1 ml/min; Est GFR (African American) 90.4 ml/min; Potassium 3.3 mmol/L (3.5-5.1)
[2022-10-16] MEDS: DOCUSATE SODIUM 100 MG CAP PO SCH ×2 (07:51→19:42)
[2022-10-16] MEDS: NICOTINE 21 MG/24 HR TDSY TD SCH (07:51)
[2022-10-16] MEDS: UMECLIDINIUM BROMIDE 62.5MCG/BLISTER 7 PUFFS/INHALER INH SCH (07:51)
[2022-10-16 08:02] LABS: Basophils # (auto) 0.04 K/uL (0-0.2); Basophils % (auto) 0.2 %; Eosinophils # (auto) 0.16 K/uL (0-0.50); Eosinophils % (auto) 0.9 %; Hematocrit (blood only) 29.4 % (42.0-52.0); Immature Granulocytes # (auto) 0.35 K/uL (0.01-0.20); Immature Granulocytes % (auto) 1.9 %; Lymphocytes # (auto) 1.29 K/uL (1.2-3.4); Mean Corpuscular Hemoglobin 31.6 pg (25.0-34.0); Monocytes # (auto) 1.99 K/uL (0.11-0.59); Monocytes % (auto) 10.8 %; Neutrophils # (auto) 14.65 K/uL (1.40-6.50); Neutrophils % (auto) 79.2 %; Platelet Count 223 K/uL (130-400); RDW Coefficient of Variation 17.4 % (11.5-14.5); Red Blood Count 3.16 M/uL (4.70-6.10); White Blood Count 18.48 K/ul (4.8-10.8)
[2022-10-16] MEDS ORDERED: ACETAMINOPHEN 325 MG TAB PO PRN (10:48)
--- NOTE | 2022-10-16 11:14 | Surgery Progress Note ---
Date of Service October 16, 2022 Assessment & Plan (1) S/P aortobifemoral bypass surgery: Plan: POD#5 after aortobifemoral BPG. Doing well post op. Tachycardia improved, EVENS resolved, taking PO well. Ambulating with walker for therapy. States his granddaughter will be staying with him, as well as his . Discussed with case management. Planning on d/c home with HH tomrorow. (2) Renal insufficiency: Plan: Creatinine improving. UOP improving. Admission and Anticipated Discharge Date Admission Date: October 08, 2022 Subjective 76 yo m POD #5 after aortobifemoral BPG, seen in f/u today. Pt states feeling ok, just tired. Has pain in incisions only. No foot pain. Taking PO without N/V. +BM. No other new complaints. Review of Systems Review of Systems: All systems reviewed & are unremarkable except as noted in HPI & below Physical Exam Constitutional: WD/WN, vitals as above Respiratory: normal respiratory effort, lungs clear to auscultation normal respiratory effort; no respiratory distress Cardiovascular: Rate/Rhythm: regular rate and regular rhythm Vessels: posterior tibial pulses present (palbable bilat), dorsalis pedis pulses present (palbable bilat) and radial pulses present; + femoral pulses abnormal Extremities: normal capillary refill Gastrointestinal (Abdomen): Inspection/Auscultation: abdomen normal to inspection and + abdominal surgical incision (dressing intact on abdomen, no drainage); abdomen not distended Percussion/Palpation: + abdomen tender and abdomen soft; no guarding Musculoskeletal: no cyanosis or clubbing, extremities motor strength 5/5 Extremities: strength 5/5 throughout Skin: + incision (prevena drsg intact, abd dressing without drainage) Neurologic: CN's II-XI intact bilaterally, normal sensation to monofilament (Slight decrease sensation in both feet) and moves all extremities Psychiatric: Orientation: alert and oriented x 3 Results & Data Vital Signs (Past 12 Hours) Vital Signs Temp Pulse Resp BP Pulse Ox Pulse Ox O2 Del Method 10/16/22 10:55 96 10/16/22 07:00 58 L 10/16/22 08:01 36.8 C 90 22 163/81 H 93 Room Air 10/16/22 03:00 36.7 C 76 20 151/80 H 90 Room Air O2 Flow Rate 10/16/22 10:55 0 10/16/22 07:00 10/16/22 08:01 10/16/22 03:00
[2022-10-17] MEDS: UMECLIDINIUM BROMIDE 62.5MCG/BLISTER 7 PUFFS/INHALER INH SCH (07:57)
[2022-10-17] MEDS: DOCUSATE SODIUM 100 MG CAP PO SCH (07:58)
[2022-10-17] MEDS: NICOTINE 21 MG/24 HR TDSY TD SCH (07:59)
[2022-10-17] MEDS ORDERED: TAMSULOSIN HCL 0.4 MG CAP PO SCH (13:30)
[2022-10-17] MEDS ORDERED: FINASTERIDE 5 MG TAB PO SCH (13:30)
[2022-10-17] MEDS ORDERED: CLOPIDOGREL BISULFATE 75 MG TAB PO SCH (13:30)
[2022-10-17] MEDS ORDERED: ATORVASTATIN 40 MG TAB PO SCH (13:30)
--- NOTE | 2022-10-17 16:19 | Surgery Progress Note ---
Date of Service October 17, 2022 Assessment & Plan (1) S/P aortobifemoral bypass surgery: Plan: S\P AF2. Patient doing well. Will d\c today. (2) Renal insufficiency: Plan: Creatinine improving. UOP improving. Admission and Anticipated Discharge Date Admission Date: October 08, 2022 Subjective 76 yo m s\pr aortobifemoral BPG, seen in f/u today. No complaints. Voiding ok at present. Walking in phillip. Legs feel better walking Physical Exam Constitutional: WD/WN, vitals as above Respiratory: normal respiratory effort; no respiratory distress Cardiovascular: Rate/Rhythm: regular rate and regular rhythm Vessels: posterior tibial pulses present (palbable bilat) and dorsalis pedis pulses present (palbable bilat) Extremities: normal capillary refill Gastrointestinal (Abdomen): Inspection/Auscultation: + abdominal surgical incision (abd incision clean and dry, preven groin dressings in place) Musculoskeletal: no cyanosis or clubbing, extremities motor strength 5/5 Neurologic: CN's II-XI intact bilaterally and moves all extremities Psychiatric: Orientation: alert and oriented x 3 Results & Data Vital Signs (Past 12 Hours) Vital Signs Temp Pulse Resp BP Pulse Ox O2 Del Method 10/17/22 15:27 36.6 C 86 18 158/92 H 92 Room Air 10/17/22 14:52 72 10/17/22 11:30 36.6 C 79 16 150/70 H 92 Room Air 10/17/22 07:56 36.5 C 93 H 17 149/84 H 94 Room Air 10/17/22 07:00 98 H
--- NOTE | 2022-10-17 16:20 | Discharge Summary ---
Date of Service October 17, 2022 Admission HPI Per Admitting Provider This 76-year-old gentleman was seen in the office for bilateral iliac occlusions on ultrasound. He had a duplex which showed bilateral iliac artery occlusions. He was to have a CT angio as an outpatient followed by revascularization. Most likely the plan was to do an aortobifemoral bypass however his rest pain developed in both lower extremities. He was seen in the ED for increased pain and admitted at that time. CT angio done at that time showed an infrarenal aortic occlusion and bilateral iliac artery occlusions. He was admitted for pain control and preop for aortobifemoral bypass for limb salvage. Admission Exam Per Admitting Provider Constitutional: WD/WN, vitals as above Respiratory: normal respiratory effort, lungs clear to auscultation Cardiovascular: RRR, no murmur, no edema Vessels: radial pulses present; no carotid bruit, + femoral pulses abnormal, + posterior tibial pulses abnormal and + dorsalis pedis pulses abnormal Extremities: normal capillary refill (Decreased) Gastrointestinal (Abdomen): normal bowel sounds, soft, nontender, no hepatosplenomegaly Musculoskeletal: no cyanosis or clubbing, extremities motor strength 5/5 Neurologic: CN's II-XI intact bilaterally, normal sensation to monofilament (Slight decrease sensation in both feet) and moves all extremities Psychiatric: Orientation: alert and oriented x 3 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 Discharge Exam Constitutional WD/WN, vitals as above Respiratory normal respiratory effort; no respiratory distress Cardiovascular Rate/Rhythm: regular rate and regular rhythm Vessels: posterior tibial pulses present (palbable bilat) and dorsalis pedis pulses present (palbable bilat) Extremities: normal capillary refill Gastrointestinal (Abdomen) Inspection/Auscultation: + abdominal surgical incision (abd incision clean and dry, preven groin dressings in place) Musculoskeletal no cyanosis or clubbing, extremities motor strength 5/5 Neurologic CN's II-XI intact bilaterally and moves all extremities Psychiatric Orientation: alert and oriented x 3 Discharge Data Allergies Allergy/AdvReac Type Severity Reaction Status Date / Time gabapentin AdvReac Unknown Verified 09/05/22 14:59 Consultations 10/08/22 11:16 ED Decision to Admit Stat 10/11/22 17:11 Consult Electrical Maintenance Man Routine Procedures Performed Operation Date: 10/11/22 10:20 Actual Procedures p Aortobifemoral Bypass(Not Applicable) - Joaquim hCa MD Ordered Studies 10/08/22 09:54 CT ang AA runof w inc wo ifdon Stat 10/09/22 10:12 Carotid duplex [US carotid doppler BI] Routine 10/12/22 15:49 CT abd pelvis wo con Stat Hospital Course (1) S/P aortobifemoral bypass surgery: S\P AF2. Patient doing well. Will d\c today. Total Time Total Time Spent Total Time Spent (In Minutes): 0 Discharge Plan Discharge Items Patient Disposition: Home - Self-Care Reason For Visit: AIOD WITH REST PAIN Discharge Diagnosis: Infrarenal aortic and iliac occlusions Activity: Per Instructions section Non-emergency contact: Surgeon Call non-emergency contact if: your temperature is above 101.5, your wound has increased redness, your wound has increased drainage and your wound pain has increased Follow-up/Referrals: Joaquim Cha MD [Physician] - (Left a message with medical scheduler to call patient at home with date and time of follow up appt.) Dusty Palumbo D.O. [Primary Care Provider] - Diet: Heart Healthy Addtl Attending Provider Instructions: ACTIVITY RECOMMENDATIONS: No lifting more than 20 lbs for 2 weeks, then increase gradually as tolerated. When groin dressing puff up and no suction is working, remove groin dressings. May shower once groin dressings are removed. May ambulate as much as possible SPECIAL CARE INSTRUCTIONS: Call your doctor if: * Temperature above 101 degrees * Pain not relieved by pain medicine ordered * There is increased drainage or redness from any incision * You have any unanswered questions or concerns. Call [phone] to schedule a follow up appointment if one not already scheduled. Pending Studies at Discharge: No Stand-Alone Forms: [employer], Smoking Cessation Medications and DC Order Prescriptions: New oxycodone-acetaminophen [Percocet] 5-325 mg tablet 1 tab PO Q6H PRN (Reason: pain) Qty: 30 0RF Continued tamsulosin [Flomax] 0.4 mg capsule 0.4 mg PO DAILY clopidogrel [Plavix] 75 mg tablet 75 mg PO DAILY multivitamin Tablet 1 tab PO DAILY acetaminophen [Tylenol] 325 mg tablet 325 mg PO QID PRN (Reason: Pain) atorvastatin 40 mg tablet 40 mg PO DAILY finasteride 5 mg tablet 5 mg PO DAILY Discharge Orders: Discharge Order (Routine); Ordered 10/17/22 Ordered By: Joaquim Cha Admission Data Admit Date/Time: 10/08/22 11:31 Attending Provider: Joaquim Cha Admit Provider: Joaquim Cha Primary Care Provider: Dusty Palumbo Other Providers: Joaquim Cha ; Winston Edwards ; Keegan Lala ; Mickey Ferguson ; Jed Sher ; Jeff Figueroa ; Dusty Fonseca ; Zev Bhatti ; Sascha Patricio ; Nely Alexander
== END 2022-10-17 18:03 | disposition home health service (06) | DRG 270 ==
LOC: ED 09:22 → 3N 11:31 → 1E 10-11 17:39 → 2E 10-14 12:11